=== PATIENT | male | born 1935 | race Two or more races ===

== ENCOUNTER 2019-07-25 09:48 | Inpatient (IN) | payer MEDICAID, MEDICARE ==
[2019-07-25] VITALS (17 sets, daily range): BP systolic 100–143; BP diastolic 61–86
[~2019-07-25] VITALS: Ht 172.7 cm; Wt 72.6 kg
[2019-07-25] MEDS ORDERED: SODIUM CHLORIDE 0.9% 1000ML BAG (SEPSIS BOLUS) IV ONE (10:15)
[2019-07-25 11:25] LABS: CLARITY URINE CLEAR (CLEAR); COLOR URINE YELLOW (YELLOW); KETONES URINE 3+ (NEGATIVE); LEUKOCYTE ESTERASE URINE NEGATIVE (NEGATIVE); NITRITE URINE NEGATIVE (NEGATIVE); OCCULT BLOOD URINE 1+ (NEGATIVE); PROTEIN URINE 3+ (NEGATIVE); SPECIFIC GRAVITY URINE 1.017 (1.005-1.030); UROBILINOGEN URINE 0.2 E.U./dL (0.2-1.0)
[2019-07-25 11:41] LABS: BASOPHILS % 0.4 % (0.0-2.0); EOSINOPHILS % 0.1 % (0.0-5.0); HEMATOCRIT. 47.7 % (42.0-52.0); HEMOGLOBIN. 15.4 g/dL (14.0-18.0); LYMPHOCYTES % 14.6 % (20.0-50.0); MEAN CORPUSCULAR HEMOGLOBIN 30.4 pg (28.0-32.0); MEAN CORPUSCULAR VOLUME 94.2 fL (80.0-94.0); MEAN PLATELET VOLUME 9.7 fl (7.4-10.4); MONOCYTES % 4.7 % (2.0-8.0); NEUTROPHILS % 80.2 % (40.0-76.0); PLATELET 189 x1000/uL (130-400); RED BLOOD CELL COUNT 5.06 mill/uL (4.7-6.1); RED CELL DISTRIBUTION WIDTH 14.9 % (11.6-14.6)
[2019-07-25 11:46] LABS: INR 1.1; PROTHROMBIN TIME 11.4 sec (9.6-11.0)
[2019-07-25 12:02] LABS: CHLORIDE 97 mEq/L (98-107)
[2019-07-25] MEDS ORDERED: PIPERACILLIN/TAZ 3.375G PREMIX 50 ML IV ONE (12:30)
[2019-07-25] MEDS ORDERED: AZITHROMYCIN 500 MG in DEXT 5% WATER 250 ML IV ONE (12:30)
[2019-07-25] MEDS ORDERED: HYDRALAZINE 20MG/ML VIAL IV ONE ×2 (12:45→13:45)
[2019-07-25 13:54] LABS: BG BASE EXCESS -3.3 mmol/L (-2.0-2.0); BG CARBOXYHEMOGLOBIN 1.5 % (0.5-1.5); BG DEOXYHEMOGLOBIN 16.1 % (0.0-5.0); BG FRACTION INSPIRED OXYGEN 21; BG HCO3 ACT 21.8 mmol/L (22.0-26.0); BG METHEMOGLOBIN 0.3 % (0.0-1.5); BG OXYGEN SATURATION 83.6 % (92.0-98.5); BG OXYHEMOGLOBIN 82.1 % (94.0-97.0); BG PCO2 39.8 mmHg (35.0-45.0); BG PH 7.357 (7.350-7.450); BG PO2 50.7 mmHg (75.0-100.0); BG SAMPLE SITE RIGHT BRACHIAL; BG TOTAL HEMOGLOBIN 14.7 g/dL (12.0-18.0); BG VENT MODE ROOM AIR
[2019-07-25] MEDS ORDERED: SUCCINYLCHOLINE CHLORIDE 200MG/10ML IV ONE (14:00)
[2019-07-25] MEDS ORDERED: ETOMIDATE 2MG/ML 10ML VIAL IV ONE (14:00)
[2019-07-25] MEDS ORDERED: MIDAZOLAM HCL 2 MG/2 ML VIAL IV ONE (14:00)
[2019-07-25] MEDS ORDERED: MIDAZOLAM HCL 50 MG in DEXTROSE 5% WATER 40 ML IV ONE (14:00)
[2019-07-25] MEDS ORDERED: MIDAZOLAM HCL 50 MG in DEXTROSE 5% WATER 40 ML IV SCH (14:30)
[2019-07-25 15:14] LABS: BG CARBOXYHEMOGLOBIN 0.7 % (0.5-1.5); BG DEOXYHEMOGLOBIN 0.5 % (0.0-5.0); BG FRACTION INSPIRED OXYGEN 100; BG HCO3 ACT 19.5 mmol/L (22.0-26.0); BG METHEMOGLOBIN 0.3 % (0.0-1.5); BG OXYGEN SATURATION 99.5 % (92.0-98.5); BG OXYHEMOGLOBIN 98.5 % (94.0-97.0); BG PH 7.364 (7.350-7.450); BG PO2 527.8 mmHg (75.0-100.0); BG SAMPLE SITE LEFT RADIAL; BG TIDAL VOLUME(mL) 600 mL; BG TOTAL HEMOGLOBIN 14.3 g/dL (12.0-18.0); BG VENT MODE VENT - A/C; BG VENT RATE 12 set
[2019-07-25] MEDS ORDERED: IPRATROPIUM/ALBUTEROL 0.5-3(2.5)MG/3ML NEB HHN PRN (15:30)
[2019-07-25] MEDS ORDERED: FENTANYL CITRATE/PF 500 MCG in SODIUM CHLORIDE 0.9% 40 ML IV PRN ×2 (15:30→16:00)
[2019-07-25 15:50] LABS: *BARBITURATES SCREEN URINE NEGATIVE (NEGATIVE); CANNABINOID URINE SCREEN NEGATIVE (NEGATIVE)
[2019-07-25 15:51] LABS: *AMPHETAMINES SCREEN URINE NEGATIVE (NEGATIVE); *BENZODIAZEPINES SCREEN URINE NEGATIVE (NEGATIVE); *COCAINE SCREEN URINE NEGATIVE (NEGATIVE); METHADONE URINE SCREEN NEGATIVE (NEGATIVE); OPIATES URINE SCREEN NEGATIVE (NEGATIVE); PHENCYCLIDINE URINE SCREEN NEGATIVE (NEGATIVE)
[2019-07-25] MEDS: ACETAMINOPHEN 325MG TABLET PO PRN ×2 (16:23→23:31)
[2019-07-25] MEDS: PROPOFOL 10MG/ML 100ML 100 ML IV PRN (16:24)
[2019-07-25] MEDS ORDERED: SODIUM CHLORIDE 10% FOR INH 15ML VIAL NEB INH SCH (18:00)
[2019-07-25] MEDS: IPRATROPIUM/ALBUTEROL 0.5-3(2.5)MG/3ML NEB HHN SCH (20:27)
[2019-07-25] MEDS: CEFTRIAXONE 1 G PREMIX 50 ML IV SCH (21:02)
[2019-07-25] MEDS ORDERED: DEXTROSE 50% WATER 50ML SYRINGE IV PRN (23:45)
[2019-07-26] VITALS (49 sets, daily range): BP systolic 72–167; BP diastolic 48–103
[2019-07-26] MEDS: IPRATROPIUM/ALBUTEROL 0.5-3(2.5)MG/3ML NEB HHN SCH ×6 (00:07→20:39)
[2019-07-26] MEDS: ACETAMINOPHEN 325MG TABLET PO PRN (05:11)
[2019-07-26 05:58] LABS: BASOPHILS % 0.2 % (0.0-2.0); HEMOGLOBIN. 12.8 g/dL (14.0-18.0); LYMPHOCYTES % 14.4 % (20.0-50.0); MEAN CORPUSCULAR HEMOGLOBIN 30.5 pg (28.0-32.0); MEAN CORPUSCULAR VOLUME 93.2 fL (80.0-94.0); MEAN PLATELET VOLUME 9.5 fl (7.4-10.4); MONOCYTES % 10.6 % (2.0-8.0); NEUTROPHILS % 74.8 % (40.0-76.0); PLATELET 173 x1000/uL (130-400); RED BLOOD CELL COUNT 4.18 mill/uL (4.7-6.1); RED CELL DISTRIBUTION WIDTH 14.7 % (11.6-14.6)
[2019-07-26 06:04] LABS: CHLORIDE 99 mEq/L (98-107)
[2019-07-26 06:14] LABS: PHOSPHORUS 3.8 mg/dL (2.5-4.9)
[2019-07-26] MEDS: BLOOD SUGAR DIAGNOSTIC STRIP TEST SCH ×4 (06:28→17:10)
[2019-07-26 08:19] LABS: BG BASE EXCESS -0.7 mmol/L (-2.0-2.0); BG CARBOXYHEMOGLOBIN 0.6 % (0.5-1.5); BG DEOXYHEMOGLOBIN 1.5 % (0.0-5.0); BG FRACTION INSPIRED OXYGEN 40; BG HCO3 ACT 21.3 mmol/L (22.0-26.0); BG METHEMOGLOBIN 0.1 % (0.0-1.5); BG OXYGEN SATURATION 98.5 % (92.0-98.5); BG OXYHEMOGLOBIN 97.8 % (94.0-97.0); BG PCO2 27.8 mmHg (35.0-45.0); BG PH 7.502 (7.350-7.450); BG PO2 149.2 mmHg (75.0-100.0); BG SAMPLE SITE RIGHT RADIAL; BG TIDAL VOLUME(mL) 550 mL; BG VENT MODE VENT - A/C; BG VENT RATE 12 set
[2019-07-26] MEDS: INSULIN LISPRO 100 UNITS/ML SUBCUT SCH ×4 (08:42→22:33)
[2019-07-26] MEDS ORDERED: POTASSIUM CHLORIDE 20MEQ/PACKET PO NR (12:00)
[2019-07-26] MEDS ORDERED: MAGNESIUM 4 G PREMIX 100 ML IV NR (13:00)
[2019-07-26] MEDS: AZITHROMYCIN 500 MG in DEXT 5% WATER 250 ML IV SCH (13:10)
[2019-07-26] MEDS: PROPOFOL 10MG/ML 100ML 100 ML IV PRN (14:12)
[2019-07-26] MEDS: CEFTRIAXONE 1 G PREMIX 50 ML IV SCH (17:00)
[2019-07-26] MEDS ORDERED: ENOXAPARIN 40MG/0.4ML SYR SUBCUT SCH (21:00)
[2019-07-26 21:34] LABS: BG CARBOXYHEMOGLOBIN 0.8 % (0.5-1.5); BG DEOXYHEMOGLOBIN 3.3 % (0.0-5.0); BG FRACTION INSPIRED OXYGEN 30; BG HCO3 ACT 20.9 mmol/L (22.0-26.0); BG OXYGEN SATURATION 96.7 % (92.0-98.5); BG OXYHEMOGLOBIN 95.9 % (94.0-97.0); BG PH 7.506 (7.350-7.450); BG PO2 88.6 mmHg (75.0-100.0); BG PRESSURE SUPPORT 15; BG SAMPLE SITE RIGHT RADIAL; BG TIDAL VOLUME(mL) 550 mL; BG TOTAL HEMOGLOBIN 12.5 g/dL (12.0-18.0); BG VENT MODE VENT - SIMV; BG VENT RATE 10 set
[2019-07-26] MEDS: PANTOPRAZOLE SODIUM 40 MG/VIAL IV SCH (22:31)
[2019-07-26] MEDS: ENOXAPARIN 40MG/0.4ML SYR SUBCUT SCH (22:32)
[2019-07-26] MEDS: ASPIRIN 81MG TABLET PO SCH (22:32)
[2019-07-26] MEDS: INSULIN GLARGINE UD 100 UNITS/ML SYR SUBCUT SCH (22:33)
[2019-07-27] VITALS (43 sets, daily range): BP systolic 93–170; BP diastolic 56–88
[2019-07-27] MEDS: IPRATROPIUM/ALBUTEROL 0.5-3(2.5)MG/3ML NEB HHN SCH ×6 (00:22→20:40)
[2019-07-27 04:50] LABS: PHOSPHORUS 2.8 mg/dL (2.5-4.9)
[2019-07-27 05:25] LABS: BASOPHILS % 0.2 % (0.0-2.0); HEMATOCRIT. 37.5 % (42.0-52.0); HEMOGLOBIN. 12.4 g/dL (14.0-18.0); LYMPHOCYTES % 16.3 % (20.0-50.0); MEAN CORPUSCULAR HEMOGLOBIN 30.7 pg (28.0-32.0); MEAN CORPUSCULAR VOLUME 92.9 fL (80.0-94.0); MEAN PLATELET VOLUME 9.6 fl (7.4-10.4); NEUTROPHILS % 73.5 % (40.0-76.0); PLATELET 153 x1000/uL (130-400); RED BLOOD CELL COUNT 4.04 mill/uL (4.7-6.1); RED CELL DISTRIBUTION WIDTH 14.7 % (11.6-14.6)
[2019-07-27] MEDS: BLOOD SUGAR DIAGNOSTIC STRIP TEST SCH ×5 (06:14→23:58)
[2019-07-27] MEDS: INSULIN LISPRO 100 UNITS/ML SUBCUT SCH ×4 (06:15→20:58)
[2019-07-27] MEDS: ASPIRIN 81MG TABLET PO SCH (08:50)
[2019-07-27] MEDS: PANTOPRAZOLE SODIUM 40 MG/VIAL IV SCH (08:50)
[2019-07-27] MEDS ORDERED: LEVETIRACETAM 500 MG in SODIUM CHLORIDE 0.9% 100 ML IV SCH (09:00)
[2019-07-27 09:08] LABS: BG BASE EXCESS -3.8 mmol/L (-2.0-2.0); BG CARBOXYHEMOGLOBIN 0.5 % (0.5-1.5); BG DEOXYHEMOGLOBIN 1.7 % (0.0-5.0); BG FRACTION INSPIRED OXYGEN 30; BG HCO3 ACT 19.9 mmol/L (22.0-26.0); BG METHEMOGLOBIN 0.3 % (0.0-1.5); BG OXYGEN SATURATION 98.3 % (92.0-98.5); BG OXYHEMOGLOBIN 97.5 % (94.0-97.0); BG PCO2 31.9 mmHg (35.0-45.0); BG PH 7.412 (7.350-7.450); BG PO2 138.7 mmHg (75.0-100.0); BG PRESSURE SUPPORT 15; BG SAMPLE SITE RIGHT RADIAL; BG TIDAL VOLUME(mL) 550 mL; BG TOTAL HEMOGLOBIN 12.9 g/dL (12.0-18.0); BG VENT MODE VENT - SIMV; BG VENT RATE 10 set
[2019-07-27] MEDS: LEVETIRACETAM 500MG PREMIX 100 ML IV SCH ×2 (09:13→20:39)
[2019-07-27] MEDS: INSULIN GLARGINE UD 100 UNITS/ML SYR SUBCUT SCH ×2 (09:16→22:11)
[2019-07-27] MEDS: LORAZEPAM 2MG/ML CPJ IV PRN (10:24)
[2019-07-27] MEDS: AZITHROMYCIN 500 MG in DEXT 5% WATER 250 ML IV SCH (12:51)
[2019-07-27] MEDS: CEFTRIAXONE 1 G PREMIX 50 ML IV SCH (17:18)
[2019-07-27] MEDS: ENOXAPARIN 40MG/0.4ML SYR SUBCUT SCH (20:39)
[2019-07-28] VITALS (25 sets, daily range): BP systolic 118–168; BP diastolic 59–94
[2019-07-28] MEDS: IPRATROPIUM/ALBUTEROL 0.5-3(2.5)MG/3ML NEB HHN SCH ×6 (00:37→20:58)
[2019-07-28] MEDS: ACETAMINOPHEN 325MG TABLET PO PRN (03:44)
[2019-07-28] MEDS: BLOOD SUGAR DIAGNOSTIC STRIP TEST SCH ×3 (05:54→17:56)
[2019-07-28 06:01] LABS: BASOPHILS % 0.5 % (0.0-2.0); EOSINOPHILS % 0.5 % (0.0-5.0); HEMATOCRIT. 36.4 % (42.0-52.0); HEMOGLOBIN. 11.9 g/dL (14.0-18.0); LYMPHOCYTES % 15.5 % (20.0-50.0); MEAN CORPUSCULAR HEMOGLOBIN 30.7 pg (28.0-32.0); MONOCYTES % 10.4 % (2.0-8.0); NEUTROPHILS % 73.1 % (40.0-76.0); PLATELET 145 x1000/uL (130-400); RED BLOOD CELL COUNT 3.88 mill/uL (4.7-6.1); RED CELL DISTRIBUTION WIDTH 14.6 % (11.6-14.6)
[2019-07-28 06:06] LABS: CHLORIDE 103 mEq/L (98-107)
[2019-07-28] MEDS: INSULIN LISPRO 100 UNITS/ML SUBCUT SCH ×4 (06:31→21:00)
[2019-07-28] MEDS: PANTOPRAZOLE SODIUM 40 MG/VIAL IV SCH (09:12)
[2019-07-28] MEDS: LEVETIRACETAM 500MG PREMIX 100 ML IV SCH ×2 (09:12→20:38)
[2019-07-28] MEDS: ASPIRIN 81MG TABLET PO SCH (09:12)
[2019-07-28] MEDS: INSULIN GLARGINE UD 100 UNITS/ML SYR SUBCUT SCH ×2 (10:10→23:16)
[2019-07-28 10:14] LABS: BG BASE EXCESS 0.9 mmol/L (-2.0-2.0); BG FRACTION INSPIRED OXYGEN 30; BG HCO3 ACT 23.1 mmol/L (22.0-26.0); BG METHEMOGLOBIN 0.1 % (0.0-1.5); BG OXYHEMOGLOBIN 96.9 % (94.0-97.0); BG PCO2 29.7 mmHg (35.0-45.0); BG PH 7.509 (7.350-7.450); BG PO2 114.8 mmHg (75.0-100.0); BG PRESSURE SUPPORT 15; BG SAMPLE SITE RIGHT RADIAL; BG TIDAL VOLUME(mL) 550 mL; BG TOTAL HEMOGLOBIN 12.5 g/dL (12.0-18.0); BG VENT MODE VENT - SIMV; BG VENT RATE 8 set
[2019-07-28] MEDS: AZITHROMYCIN 500 MG in DEXT 5% WATER 250 ML IV SCH (14:11)
[2019-07-28] MEDS: CEFTRIAXONE 1 G PREMIX 50 ML IV SCH (17:59)
[2019-07-28] MEDS ORDERED: POTASSIUM CHLORIDE 20MEQ/PACKET PO NR (20:15)
[2019-07-28] MEDS: ENOXAPARIN 40MG/0.4ML SYR SUBCUT SCH (20:38)
[2019-07-29] VITALS (28 sets, daily range): BP systolic 107–187; BP diastolic 59–97
[2019-07-29] MEDS: IPRATROPIUM/ALBUTEROL 0.5-3(2.5)MG/3ML NEB HHN SCH ×6 (00:40→19:59)
[2019-07-29] MEDS: LORAZEPAM 2MG/ML CPJ IV PRN (05:01)
[2019-07-29 06:16] LABS: BASOPHILS % 0.4 % (0.0-2.0); HEMATOCRIT. 38.7 % (42.0-52.0); HEMOGLOBIN. 12.8 g/dL (14.0-18.0); LYMPHOCYTES % 15.3 % (20.0-50.0); MEAN PLATELET VOLUME 9.4 fl (7.4-10.4); MONOCYTES % 10.3 % (2.0-8.0); PLATELET 170 x1000/uL (130-400); RED BLOOD CELL COUNT 4.12 mill/uL (4.7-6.1); RED CELL DISTRIBUTION WIDTH 14.8 % (11.6-14.6)
[2019-07-29 06:19] LABS: CHLORIDE 105 mEq/L (98-107)
[2019-07-29] MEDS: BLOOD SUGAR DIAGNOSTIC STRIP TEST SCH ×5 (06:25→23:51)
[2019-07-29] MEDS: INSULIN LISPRO 100 UNITS/ML SUBCUT SCH ×4 (06:29→23:50)
[2019-07-29 07:21] LABS: BG BASE EXCESS 1.9 mmol/L (-2.0-2.0); BG CARBOXYHEMOGLOBIN 0.6 % (0.5-1.5); BG DEOXYHEMOGLOBIN 1.3 % (0.0-5.0); BG FRACTION INSPIRED OXYGEN 30; BG HCO3 ACT 25.9 mmol/L (22.0-26.0); BG METHEMOGLOBIN 0.1 % (0.0-1.5); BG OXYGEN SATURATION 98.7 % (92.0-98.5); BG PCO2 38.7 mmHg (35.0-45.0); BG PH 7.444 (7.350-7.450); BG PO2 151.4 mmHg (75.0-100.0); BG SAMPLE SITE RIGHT BRACHIAL; BG TIDAL VOLUME(mL) 500 mL; BG TOTAL HEMOGLOBIN 12.8 g/dL (12.0-18.0); BG VENT MODE VENT - A/C; BG VENT RATE 10 set
[2019-07-29] MEDS: LEVETIRACETAM 500MG PREMIX 100 ML IV SCH (09:00)
[2019-07-29] MEDS: ASPIRIN 81MG TABLET PO SCH (09:00)
[2019-07-29] MEDS: PANTOPRAZOLE SODIUM 40 MG/VIAL IV SCH (09:00)
[2019-07-29] MEDS ORDERED: PROPOFOL 10MG/ML 100ML 100 ML IV PRN (09:30)
[2019-07-29] MEDS: INSULIN GLARGINE UD 100 UNITS/ML SYR SUBCUT SCH ×2 (11:01→21:37)
[2019-07-29] MEDS: AZITHROMYCIN 500 MG in DEXT 5% WATER 250 ML IV SCH (14:00)
[2019-07-29] MEDS: CEFTRIAXONE 1 G PREMIX 50 ML IV SCH (19:31)
[2019-07-29] MEDS: ENOXAPARIN 40MG/0.4ML SYR SUBCUT SCH (21:31)
[2019-07-29] MEDS: LEVETIRACETAM 1,000 MG in SODIUM CHLORIDE 0.9% 100 ML IV SCH (21:31)
[2019-07-30] VITALS (37 sets, daily range): BP systolic 117–179; BP diastolic 60–101
[2019-07-30] MEDS: IPRATROPIUM/ALBUTEROL 0.5-3(2.5)MG/3ML NEB HHN SCH ×6 (00:05→20:58)
[2019-07-30] MEDS: BLOOD SUGAR DIAGNOSTIC STRIP TEST SCH ×4 (05:51→23:47)
[2019-07-30] MEDS: INSULIN LISPRO 100 UNITS/ML SUBCUT SCH ×4 (05:51→23:46)
[2019-07-30 06:37] LABS: BASOPHILS % 0.3 % (0.0-2.0); EOSINOPHILS % 1.4 % (0.0-5.0); HEMATOCRIT. 35.7 % (42.0-52.0); HEMOGLOBIN. 11.5 g/dL (14.0-18.0); MEAN CORPUSCULAR HEMOGLOBIN 30.4 pg (28.0-32.0); MEAN CORPUSCULAR VOLUME 94.3 fL (80.0-94.0); MEAN PLATELET VOLUME 9.2 fl (7.4-10.4); NEUTROPHILS % 78.3 % (40.0-76.0); PLATELET 159 x1000/uL (130-400); RED BLOOD CELL COUNT 3.79 mill/uL (4.7-6.1); RED CELL DISTRIBUTION WIDTH 15.2 % (11.6-14.6)
[2019-07-30 06:39] LABS: CHLORIDE 107 mEq/L (98-107)
[2019-07-30] MEDS: ASPIRIN 81MG TABLET PO SCH (07:59)
[2019-07-30] MEDS: LEVETIRACETAM 1,000 MG in SODIUM CHLORIDE 0.9% 100 ML IV SCH ×2 (07:59→21:39)
[2019-07-30] MEDS: PANTOPRAZOLE SODIUM 40 MG/VIAL IV SCH (07:59)
[2019-07-30] MEDS: INSULIN GLARGINE UD 100 UNITS/ML SYR SUBCUT SCH ×2 (09:30→21:41)
[2019-07-30] MEDS ORDERED: PROPOFOL 10MG/ML 100ML 100 ML IV PRN (10:15)
[2019-07-30] MEDS ORDERED: MORPHINE SULFATE 2 MG/ML CPJ (NOT FOR IM USE) IV PRN (12:15)
[2019-07-30] MEDS: ACETAMINOPHEN 325MG TABLET PO PRN (12:22)
[2019-07-30 15:22] LABS: BG BASE EXCESS 1.8 mmol/L (-2.0-2.0); BG CARBOXYHEMOGLOBIN 0.7 % (0.5-1.5); BG DEOXYHEMOGLOBIN 2.5 % (0.0-5.0); BG FRACTION INSPIRED OXYGEN 40; BG HCO3 ACT 25.5 mmol/L (22.0-26.0); BG METHEMOGLOBIN 0.3 % (0.0-1.5); BG OXYGEN SATURATION 97.5 % (92.0-98.5); BG OXYHEMOGLOBIN 96.5 % (94.0-97.0); BG PCO2 36.8 mmHg (35.0-45.0); BG PH 7.459 (7.350-7.450); BG PO2 101.7 mmHg (75.0-100.0); BG PRESSURE SUPPORT 8; BG SAMPLE SITE RIGHT RADIAL; BG TOTAL HEMOGLOBIN 12.4 g/dL (12.0-18.0); BG VENT MODE VENT - CPAP
[2019-07-30] MEDS: AZITHROMYCIN 500 MG in DEXT 5% WATER 250 ML IV SCH (15:47)
[2019-07-30] MEDS: LORAZEPAM 2MG/ML CPJ IV PRN (18:11)
[2019-07-30] MEDS: CEFTRIAXONE 1 G PREMIX 50 ML IV SCH (19:37)
[2019-07-30] MEDS: ENOXAPARIN 40MG/0.4ML SYR SUBCUT SCH (21:41)
[2019-07-31] VITALS (28 sets, daily range): BP systolic 111–199; BP diastolic 40–124
[2019-07-31] MEDS: IPRATROPIUM/ALBUTEROL 0.5-3(2.5)MG/3ML NEB HHN SCH ×6 (01:02→20:20)
[2019-07-31] MEDS: BLOOD SUGAR DIAGNOSTIC STRIP TEST SCH ×4 (05:26→21:36)
[2019-07-31] MEDS: INSULIN LISPRO 100 UNITS/ML SUBCUT SCH ×3 (05:26→18:00)
[2019-07-31 05:50] LABS: BASOPHILS % 0.4 % (0.0-2.0); EOSINOPHILS % 1.5 % (0.0-5.0); HEMATOCRIT. 35.9 % (42.0-52.0); HEMOGLOBIN. 11.5 g/dL (14.0-18.0); LYMPHOCYTES % 11.1 % (20.0-50.0); MEAN CORPUSCULAR HEMOGLOBIN 30.6 pg (28.0-32.0); MEAN CORPUSCULAR VOLUME 95.1 fL (80.0-94.0); MEAN PLATELET VOLUME 9.2 fl (7.4-10.4); MONOCYTES % 10.4 % (2.0-8.0); NEUTROPHILS % 76.6 % (40.0-76.0); PLATELET 181 x1000/uL (130-400); RED BLOOD CELL COUNT 3.77 mill/uL (4.7-6.1); RED CELL DISTRIBUTION WIDTH 14.7 % (11.6-14.6)
[2019-07-31 07:56] LABS: CHLORIDE 108 mEq/L (98-107)
[2019-07-31] MEDS: PANTOPRAZOLE SODIUM 40 MG/VIAL IV SCH (08:51)
[2019-07-31] MEDS: LEVETIRACETAM 1,000 MG in SODIUM CHLORIDE 0.9% 100 ML IV SCH ×2 (09:02→21:22)
[2019-07-31] MEDS: ASPIRIN 81MG TABLET PO SCH (10:33)
[2019-07-31] MEDS: INSULIN GLARGINE UD 100 UNITS/ML SYR SUBCUT SCH ×2 (10:36→21:45)
[2019-07-31] MEDS: AZITHROMYCIN 500 MG in DEXT 5% WATER 250 ML IV SCH (13:56)
[2019-07-31] MEDS: CEFTRIAXONE 1 G PREMIX 50 ML IV SCH (18:26)
[2019-07-31] MEDS: ENOXAPARIN 40MG/0.4ML SYR SUBCUT SCH (21:22)
[2019-07-31] MEDS ORDERED: HYDRALAZINE 20MG/ML VIAL IV ONE (21:30)
[2019-07-31] MEDS ORDERED: INSULIN LISPRO 100 UNITS/ML SUBCUT SCH (21:30)
[2019-08-01] VITALS (12 sets, daily range): BP systolic 114–159; BP diastolic 67–98
[2019-08-01] MEDS: IPRATROPIUM/ALBUTEROL 0.5-3(2.5)MG/3ML NEB HHN SCH ×4 (00:15→21:10)
[2019-08-01] MEDS: BLOOD SUGAR DIAGNOSTIC STRIP TEST SCH ×2 (07:50→21:05)
[2019-08-01] MEDS: INSULIN LISPRO 100 UNITS/ML SUBCUT SCH ×2 (07:50→21:18)
[2019-08-01] MEDS: ASPIRIN 81MG TABLET PO SCH (09:39)
[2019-08-01] MEDS: INSULIN GLARGINE UD 100 UNITS/ML SYR SUBCUT SCH ×2 (09:39→21:23)
[2019-08-01] MEDS: LEVETIRACETAM 1,000 MG in SODIUM CHLORIDE 0.9% 100 ML IV SCH (09:39)
[2019-08-01] MEDS: PANTOPRAZOLE SODIUM 40 MG/VIAL IV SCH (09:39)
[2019-08-01] MEDS: AZITHROMYCIN 500 MG in DEXT 5% WATER 250 ML IV SCH (15:35)
[2019-08-01] MEDS: CEFTRIAXONE 1 G PREMIX 50 ML IV SCH (17:05)
[2019-08-01] MEDS: ENOXAPARIN 40MG/0.4ML SYR SUBCUT SCH (21:18)
[2019-08-02] VITALS: BP 137/106
[2019-08-02] MEDS: LEVETIRACETAM 1,000 MG in SODIUM CHLORIDE 0.9% 100 ML IV SCH ×2 (00:07→10:14)
[2019-08-02] MEDS: IPRATROPIUM/ALBUTEROL 0.5-3(2.5)MG/3ML NEB HHN SCH ×8 (00:52→21:42)
[2019-08-02 04:00] VITALS: BP 142/76
[2019-08-02] MEDS: INSULIN LISPRO 100 UNITS/ML SUBCUT SCH ×2 (06:45→21:59)
[2019-08-02] MEDS: BLOOD SUGAR DIAGNOSTIC STRIP TEST SCH ×2 (07:19→21:55)
[2019-08-02 08:00] VITALS: BP 127/82
[2019-08-02] MEDS: ASPIRIN 81MG TABLET PO SCH (10:14)
[2019-08-02] MEDS: PANTOPRAZOLE SODIUM 40 MG/VIAL IV SCH (10:14)
[2019-08-02] MEDS: INSULIN GLARGINE UD 100 UNITS/ML SYR SUBCUT SCH ×2 (10:14→22:00)
[2019-08-02 12:00] VITALS: BP 173/85
[2019-08-02] MEDS: ACETAMINOPHEN 325MG TABLET PO PRN (12:41)
[2019-08-02] MEDS ORDERED: HYDRALAZINE 20MG/ML VIAL IV PRN (13:15)
[2019-08-02] MEDS: NAPROXEN 250MG TABLET PO SCH (17:15)
[2019-08-02] MEDS: HYDROCODONE/ACETAMINOPHEN 5/325MG TABLET PO PRN (17:46)
[2019-08-02 20:00] VITALS: BP 132/69
[2019-08-02] MEDS: ATORVASTATIN CALCIUM 10MG TABLET PO SCH (21:00)
[2019-08-02] MEDS: FAMOTIDINE 20MG TABLET PO SCH (21:00)
[2019-08-02] MEDS: LEVETIRACETAM 500MG TABLET PO SCH (21:00)
[2019-08-02] MEDS: FLUTICASONE PROPIONATE 50MCG/SPRAY BOTTLE BOTHNSTRLS SCH (21:00)
[2019-08-02] MEDS: LORAZEPAM 2MG/ML CPJ IV PRN (21:44)
[2019-08-02] MEDS: ENOXAPARIN 40MG/0.4ML SYR SUBCUT SCH (21:58)
[2019-08-03] VITALS: BP 158/68
[2019-08-03 04:00] VITALS: BP 141/88
[2019-08-03] MEDS: BLOOD SUGAR DIAGNOSTIC STRIP TEST SCH ×2 (06:18→21:05)
[2019-08-03] MEDS: INSULIN LISPRO 100 UNITS/ML SUBCUT SCH ×2 (06:19→21:05)
[2019-08-03] MEDS: NAPROXEN 250MG TABLET PO SCH ×2 (07:15→17:15)
[2019-08-03 08:00] VITALS: BP 142/70
[2019-08-03] MEDS: ASPIRIN 81MG TABLET PO SCH (08:34)
[2019-08-03] MEDS: LEVETIRACETAM 500MG TABLET PO SCH ×2 (08:34→21:05)
[2019-08-03] MEDS: FLUTICASONE PROPIONATE 50MCG/SPRAY BOTTLE BOTHNSTRLS SCH ×2 (08:34→21:00)
[2019-08-03] MEDS: IPRATROPIUM/ALBUTEROL 0.5-3(2.5)MG/3ML NEB HHN SCH ×4 (09:11→20:21)
[2019-08-03 12:00] VITALS: BP 160/80
[2019-08-03 16:00] VITALS: BP 129/71
[2019-08-03 20:00] VITALS: BP 107/84
[2019-08-03] MEDS: FAMOTIDINE 20MG TABLET PO SCH (21:04)
[2019-08-03] MEDS: ATORVASTATIN CALCIUM 10MG TABLET PO SCH (21:05)
[2019-08-03] MEDS: ENOXAPARIN 40MG/0.4ML SYR SUBCUT SCH (21:06)
[2019-08-03] MEDS: INSULIN GLARGINE UD 100 UNITS/ML SYR SUBCUT SCH (21:21)
[2019-08-04] VITALS: BP 176/82
[2019-08-04] MEDS: IPRATROPIUM/ALBUTEROL 0.5-3(2.5)MG/3ML NEB HHN SCH ×6 (00:20→20:05)
[2019-08-04 04:00] VITALS: BP 143/72
[2019-08-04] MEDS: INSULIN LISPRO 100 UNITS/ML SUBCUT SCH ×2 (06:45→21:00)
[2019-08-04] MEDS: BLOOD SUGAR DIAGNOSTIC STRIP TEST SCH ×2 (06:47→21:25)
[2019-08-04] MEDS: FLUTICASONE PROPIONATE 50MCG/SPRAY BOTTLE BOTHNSTRLS SCH ×3 (09:00→21:09)
[2019-08-04] MEDS: LEVETIRACETAM 500MG TABLET PO SCH ×2 (10:11→21:11)
[2019-08-04] MEDS: NAPROXEN 250MG TABLET PO SCH ×2 (10:12→18:46)
[2019-08-04] MEDS: ASPIRIN 81MG TABLET PO SCH (10:12)
[2019-08-04 12:00] VITALS: BP 158/78
[2019-08-04] MEDS: HYDROCODONE/ACETAMINOPHEN 5/325MG TABLET PO PRN (14:06)
[2019-08-04 20:00] VITALS: BP 166/73
[2019-08-04] MEDS ORDERED: DIPHENHYDRAMINE 25MG CAPSULE PO PRN (21:00)
[2019-08-04] MEDS: ENOXAPARIN 40MG/0.4ML SYR SUBCUT SCH (21:10)
[2019-08-04] MEDS: FAMOTIDINE 20MG TABLET PO SCH (21:11)
[2019-08-04] MEDS: ATORVASTATIN CALCIUM 10MG TABLET PO SCH (21:11)
[2019-08-04] MEDS: CLONIDINE 0.1MG TABLET PO PRN (21:11)
[2019-08-04] MEDS: INSULIN GLARGINE UD 100 UNITS/ML SYR SUBCUT SCH (22:00)
[2019-08-04] MEDS: HYDROCORTISONE 1% CREAM 30GM TOP SCH (22:16)
[2019-08-05] VITALS: BP 155/62
[2019-08-05] MEDS: IPRATROPIUM/ALBUTEROL 0.5-3(2.5)MG/3ML NEB HHN SCH ×6 (00:35→20:00)
[2019-08-05 04:00] VITALS: BP 136/78
[2019-08-05] MEDS: INSULIN LISPRO 100 UNITS/ML SUBCUT SCH ×2 (06:30→21:00)
[2019-08-05] MEDS: BLOOD SUGAR DIAGNOSTIC STRIP TEST SCH ×2 (06:30→21:00)
[2019-08-05] MEDS: NAPROXEN 250MG TABLET PO SCH ×4 (07:15→17:52)
[2019-08-05 08:00] VITALS: BP 131/61
[2019-08-05] MEDS: ASPIRIN 81MG TABLET PO SCH ×2 (09:00→09:18)
[2019-08-05] MEDS: FLUTICASONE PROPIONATE 50MCG/SPRAY BOTTLE BOTHNSTRLS SCH ×2 (09:00→09:18)
[2019-08-05] MEDS: HYDROCORTISONE 1% CREAM 30GM TOP SCH ×2 (09:18→21:12)
[2019-08-05] MEDS: LEVETIRACETAM 500MG TABLET PO SCH (09:18)
[2019-08-05 12:00] VITALS: BP 131/61
[2019-08-05] MEDS: QUETIAPINE FUMARATE 25MG TABLET PO SCH (17:52)
[2019-08-05 20:00] VITALS: BP 139/91
[2019-08-05] MEDS: ATORVASTATIN CALCIUM 10MG TABLET PO SCH (21:00)
[2019-08-05] MEDS: ENOXAPARIN 40MG/0.4ML SYR SUBCUT SCH (21:00)
[2019-08-05] MEDS: LEVETIRACETAM 250MG TABLET PO SCH (21:00)
[2019-08-05] MEDS: FAMOTIDINE 20MG TABLET PO SCH (21:00)
[2019-08-05] MEDS: INSULIN GLARGINE UD 100 UNITS/ML SYR SUBCUT SCH (21:17)
[2019-08-06] VITALS: BP 133/69
[2019-08-06 05:00] VITALS: BP 154/85
[2019-08-06] MEDS: IPRATROPIUM/ALBUTEROL 0.5-3(2.5)MG/3ML NEB HHN SCH ×5 (05:00→16:00)
[2019-08-06] MEDS: INSULIN LISPRO 100 UNITS/ML SUBCUT SCH ×2 (06:45→21:00)
[2019-08-06] MEDS: NAPROXEN 250MG TABLET PO SCH ×2 (06:49→16:15)
[2019-08-06] MEDS: BLOOD SUGAR DIAGNOSTIC STRIP TEST SCH ×2 (06:49→21:44)
[2019-08-06 08:00] VITALS: BP 173/82
[2019-08-06] MEDS: HYDROCORTISONE 1% CREAM 30GM TOP SCH ×2 (09:36→21:45)
[2019-08-06] MEDS: LEVETIRACETAM 250MG TABLET PO SCH ×2 (09:37→21:43)
[2019-08-06] MEDS: QUETIAPINE FUMARATE 25MG TABLET PO SCH (09:37)
[2019-08-06] MEDS: ASPIRIN 81MG TABLET PO SCH (09:37)
[2019-08-06 12:00] VITALS: BP 159/68
[2019-08-06] MEDS: ACETAMINOPHEN 325MG TABLET PO PRN (13:28)
[2019-08-06 16:00] VITALS: BP 179/63
[2019-08-06] MEDS: CLONIDINE 0.1MG TABLET PO PRN (16:13)
[2019-08-06 20:00] VITALS: BP 146/80
[2019-08-06] MEDS: ENOXAPARIN 40MG/0.4ML SYR SUBCUT SCH (21:00)
[2019-08-06] MEDS: FAMOTIDINE 20MG TABLET PO SCH (21:43)
[2019-08-06] MEDS: ATORVASTATIN CALCIUM 10MG TABLET PO SCH (21:43)
[2019-08-06] MEDS: INSULIN GLARGINE UD 100 UNITS/ML SYR SUBCUT SCH (21:44)
[2019-08-07] VITALS: BP 178/85
[2019-08-07] MEDS: CLONIDINE 0.1MG TABLET PO PRN (00:13)
[2019-08-07 04:00] VITALS: BP 157/88
[2019-08-07] MEDS: BLOOD SUGAR DIAGNOSTIC STRIP TEST SCH ×2 (06:56→20:39)
[2019-08-07] MEDS: INSULIN LISPRO 100 UNITS/ML SUBCUT SCH ×2 (06:58→20:38)
[2019-08-07 08:00] VITALS: BP 163/81
[2019-08-07] MEDS: NAPROXEN 250MG TABLET PO SCH ×2 (08:17→19:08)
[2019-08-07] MEDS: HYDROCORTISONE 1% CREAM 30GM TOP SCH ×2 (08:17→20:21)
[2019-08-07] MEDS: LEVETIRACETAM 250MG TABLET PO SCH ×2 (08:17→20:20)
[2019-08-07] MEDS: QUETIAPINE FUMARATE 25MG TABLET PO SCH (08:17)
[2019-08-07] MEDS: ASPIRIN 81MG TABLET PO SCH (08:20)
[2019-08-07] MEDS: IPRATROPIUM/ALBUTEROL 0.5-3(2.5)MG/3ML NEB HHN SCH ×3 (09:15→20:35)
[2019-08-07 16:00] VITALS: BP 130/65
[2019-08-07 20:00] VITALS: BP 127/72
[2019-08-07] MEDS: ENOXAPARIN 40MG/0.4ML SYR SUBCUT SCH (20:20)
[2019-08-07] MEDS: FAMOTIDINE 20MG TABLET PO SCH (20:20)
[2019-08-07] MEDS: ATORVASTATIN CALCIUM 10MG TABLET PO SCH (20:20)
[2019-08-07] MEDS: INSULIN GLARGINE UD 100 UNITS/ML SYR SUBCUT SCH (20:42)
[2019-08-08] VITALS: BP 172/66
[2019-08-08] MEDS: IPRATROPIUM/ALBUTEROL 0.5-3(2.5)MG/3ML NEB HHN SCH ×6 (00:16→20:45)
[2019-08-08 04:00] VITALS: BP 124/59
[2019-08-08] MEDS: BLOOD SUGAR DIAGNOSTIC STRIP TEST SCH ×2 (06:20→21:00)
[2019-08-08] MEDS: INSULIN LISPRO 100 UNITS/ML SUBCUT SCH ×2 (06:20→21:00)
[2019-08-08 08:00] VITALS: BP_SYST 128; BP_SYST 167; BP_DIAS 85; BP_DIAS 89
[2019-08-08] MEDS: QUETIAPINE FUMARATE 25MG TABLET PO SCH ×2 (08:19→17:01)
[2019-08-08] MEDS: LEVETIRACETAM 250MG TABLET PO SCH ×2 (08:19→21:05)
[2019-08-08] MEDS: ASPIRIN 81MG TABLET PO SCH (08:19)
[2019-08-08] MEDS: NAPROXEN 250MG TABLET PO SCH ×2 (08:20→17:01)
[2019-08-08] MEDS: HYDROCORTISONE 1% CREAM 30GM TOP SCH ×2 (08:26→21:05)
[2019-08-08 12:00] VITALS: BP 169/88
[2019-08-08 16:00] VITALS: BP_SYST 169; BP_DIAS 81; BP_DIAS 91
[2019-08-08] MEDS: METFORMIN HCL 850MG TABLET PO SCH (17:01)
[2019-08-08 20:00] VITALS: BP 143/55
[2019-08-08] MEDS: ENOXAPARIN 40MG/0.4ML SYR SUBCUT SCH ×2 (21:00→21:06)
[2019-08-08] MEDS: INSULIN GLARGINE UD 100 UNITS/ML SYR SUBCUT SCH (21:04)
[2019-08-08] MEDS: ATORVASTATIN CALCIUM 10MG TABLET PO SCH (21:05)
[2019-08-08] MEDS: FAMOTIDINE 20MG TABLET PO SCH (21:05)
[2019-08-09 04:00] VITALS: BP 126/68
[2019-08-09] MEDS: INSULIN LISPRO 100 UNITS/ML SUBCUT SCH ×2 (06:35→21:00)
[2019-08-09] MEDS: BLOOD SUGAR DIAGNOSTIC STRIP TEST SCH ×2 (06:35→21:00)
[2019-08-09] MEDS: NAPROXEN 250MG TABLET PO SCH ×2 (07:06→16:49)
[2019-08-09] MEDS: METFORMIN HCL 850MG TABLET PO SCH ×2 (07:06→16:49)
[2019-08-09] MEDS: QUETIAPINE FUMARATE 25MG TABLET PO SCH ×2 (08:16→16:49)
[2019-08-09] MEDS: LEVETIRACETAM 250MG TABLET PO SCH ×2 (08:16→21:00)
[2019-08-09] MEDS: ASPIRIN 81MG TABLET PO SCH (08:16)
[2019-08-09] MEDS: HYDROCORTISONE 1% CREAM 30GM TOP SCH ×2 (08:16→21:00)
[2019-08-09 08:57] LABS: BASOPHILS % 1.3 % (0.0-2.0); EOSINOPHILS % 3.9 % (0.0-5.0); HEMATOCRIT. 38.5 % (42.0-52.0); HEMOGLOBIN. 12.2 g/dL (14.0-18.0); LYMPHOCYTES % 24.4 % (20.0-50.0); MEAN CORPUSCULAR HEMOGLOBIN 29.9 pg (28.0-32.0); MEAN CORPUSCULAR VOLUME 94.2 fL (80.0-94.0); MEAN PLATELET VOLUME 8.4 fl (7.4-10.4); NEUTROPHILS % 62.4 % (40.0-76.0); PLATELET 312 x1000/uL (130-400); RED BLOOD CELL COUNT 4.09 mill/uL (4.7-6.1); RED CELL DISTRIBUTION WIDTH 14.7 % (11.6-14.6)
[2019-08-09] MEDS: IPRATROPIUM/ALBUTEROL 0.5-3(2.5)MG/3ML NEB HHN SCH ×4 (08:59→20:50)
[2019-08-09 09:26] LABS: CHLORIDE 107 mEq/L (98-107)
[2019-08-09 12:00] VITALS: BP 160/69
[2019-08-09 16:00] VITALS: BP 145/68
[2019-08-09 20:00] VITALS: BP 129/83
[2019-08-09] MEDS: ATORVASTATIN CALCIUM 10MG TABLET PO SCH (21:00)
[2019-08-09] MEDS: ENOXAPARIN 40MG/0.4ML SYR SUBCUT SCH (21:00)
[2019-08-09] MEDS: FAMOTIDINE 40MG TABLET PO SCH (21:00)
[2019-08-09] MEDS: INSULIN GLARGINE UD 100 UNITS/ML SYR SUBCUT SCH (22:00)
[2019-08-10] VITALS: BP 140/53
[2019-08-10 04:00] VITALS: BP 125/71
[2019-08-10] MEDS: BLOOD SUGAR DIAGNOSTIC STRIP TEST SCH ×2 (06:21→21:00)
[2019-08-10] MEDS: METFORMIN HCL 850MG TABLET PO SCH ×2 (06:22→16:47)
[2019-08-10] MEDS: NAPROXEN 250MG TABLET PO SCH (06:22)
[2019-08-10] MEDS: INSULIN LISPRO 100 UNITS/ML SUBCUT SCH ×2 (06:22→21:00)
[2019-08-10] MEDS: IPRATROPIUM/ALBUTEROL 0.5-3(2.5)MG/3ML NEB HHN SCH ×4 (07:52→21:17)
[2019-08-10] MEDS: ACETAMINOPHEN 325MG TABLET PO PRN (08:40)
[2019-08-10] MEDS: ASPIRIN 81MG TABLET PO SCH (08:41)
[2019-08-10] MEDS: QUETIAPINE FUMARATE 25MG TABLET PO SCH ×2 (08:41→16:47)
[2019-08-10] MEDS: HYDROCORTISONE 1% CREAM 30GM TOP SCH ×2 (08:42→21:00)
[2019-08-10] MEDS: LEVETIRACETAM 250MG TABLET PO SCH ×2 (08:44→21:00)
[2019-08-10] MEDS ORDERED: IBUPROFEN 600MG TABLET PO PRN (09:15)
[2019-08-10 12:00] VITALS: BP 156/61
[2019-08-10] MEDS ORDERED: NAPROXEN 250MG TABLET PO PRN (13:15)
[2019-08-10 16:00] VITALS: BP 160/91
[2019-08-10 20:00] VITALS: BP 141/75
[2019-08-10] MEDS: FAMOTIDINE 40MG TABLET PO SCH (21:00)
[2019-08-10] MEDS: ENOXAPARIN 40MG/0.4ML SYR SUBCUT SCH (21:00)
[2019-08-10] MEDS: ATORVASTATIN CALCIUM 10MG TABLET PO SCH (21:00)
[2019-08-10] MEDS: INSULIN GLARGINE UD 100 UNITS/ML SYR SUBCUT SCH (22:00)
[2019-08-11] VITALS: BP 139/79
[2019-08-11] MEDS: IPRATROPIUM/ALBUTEROL 0.5-3(2.5)MG/3ML NEB HHN SCH ×5 (01:36→16:24)
[2019-08-11 04:00] VITALS: BP 157/95
[2019-08-11] MEDS: INSULIN LISPRO 100 UNITS/ML SUBCUT SCH (06:45)
[2019-08-11] MEDS: BLOOD SUGAR DIAGNOSTIC STRIP TEST SCH (06:45)
[2019-08-11 08:00] VITALS: BP 178/102
[2019-08-11] MEDS: CLONIDINE 0.1MG TABLET PO PRN (08:24)
[2019-08-11] MEDS: METFORMIN HCL 850MG TABLET PO SCH ×2 (08:24→17:15)
[2019-08-11] MEDS: LEVETIRACETAM 250MG TABLET PO SCH (08:45)
[2019-08-11] MEDS: ASPIRIN 81MG TABLET PO SCH (08:45)
[2019-08-11] MEDS: QUETIAPINE FUMARATE 25MG TABLET PO SCH ×2 (08:45→17:34)
[2019-08-11] MEDS: HYDROCORTISONE 1% CREAM 30GM TOP SCH (08:45)
[2019-08-11 12:00] VITALS: BP 150/70
[2019-08-11 16:00] VITALS: BP 141/77
[2019-08-11 17:51] VITALS: BP 141/77
== END 2019-08-11 18:50 | disposition home or self-care (01) | DRG 720 ==
LOC: ER 10:20 → CVICU 14:01 → EDBEDREQ 14:04 → EDBEDREQSVC 14:04 → ENRESERV 14:30 → CANRESERV 14:30 → ENRESERV 14:35 → CANRESERV 14:35 → ENRESERV 14:36 → 5WST 08-01 07:50
PROVIDERS: ADMIT Internal Medicine; ATTEND Internal Medicine
PROC: 5A1955Z Respiratory Ventilation, Greater than 96 Consecutive Hours (ICD-10-PCS; principal; 2019-07-25)
PROC: 0BH17EZ Insertion of Endotracheal Airway into Trachea, Via Natural or Artificial Opening (ICD-10-PCS; 2019-07-25)
PROC: 4A00X4Z Measurement of Central Nervous Electrical Activity, External Approach (ICD-10-PCS; 2019-07-28)
PROC: 5A09357 Assistance with Respiratory Ventilation, Less than 24 Consecutive Hours, Continuous Positive Airway Pressure (ICD-10-PCS; 2019-08-03)
PROC: 5A09357 Assistance with Respiratory Ventilation, Less than 24 Consecutive Hours, Continuous Positive Airway Pressure (ICD-10-PCS; 2019-08-04)
DX: A41.9 Sepsis, unspecified organism (principal); J96.00 Acute respiratory failure, unspecified whether with hypoxia or hypercapnia; I63.9 Cerebral infarction, unspecified; E87.6 Hypokalemia; E83.42 Hypomagnesemia; E11.9 Type 2 diabetes mellitus without complications; E78.00 Pure hypercholesterolemia, unspecified; E78.5 Hyperlipidemia, unspecified; F03.90 Unspecified dementia, unspecified severity, without behavioral disturbance, psychotic disturbance, mood disturbance, and anxiety; I25.10 Atherosclerotic heart disease of native coronary artery without angina pectoris; J44.9 Chronic obstructive pulmonary disease, unspecified; G93.41 Metabolic encephalopathy; I10 Essential (primary) hypertension; G40.409 Other generalized epilepsy and epileptic syndromes, not intractable, without status epilepticus; Z95.1 Presence of aortocoronary bypass graft; Z78.1 Physical restraint status
CPT/HCPCS: 36415; 36600; 70551; 71045; 72040; 80048; 80053; 80061; 80305; 81003; 82375; 82805; 82962; 83036; 83605; 83721; 83735; 83880; 84100; 84443; 84478; 84484; 85025; 87070; 87804; 92610; 93005; 93306; 93880; 94003; 94640; 94660; 96365; 96375; 96376; 97116; 97162; 97166; 97530; 97535; 99291; A6261; C1893; C9113; J0360; J0456; J0696; J1650; J1815; J1953; J2060; J2250; J2543; J2704; J3010; J3475; J7030; J7040; J7050; J7060; J7131; Q0163

== ENCOUNTER 2020-01-16 14:08 | Emergency (ER) | payer MEDICAID ==
[~2020-01-16] VITALS: Ht 162.6 cm; Wt 82.0 kg
[2020-01-16] MEDS ORDERED: SODIUM CHLORIDE 0.9% 500 ML IV ONE (14:30)
[2020-01-16 14:44] LABS: BASOPHILS % 0.5 % (0.0-2.0); EOSINOPHILS % 2.7 % (0.0-5.0); HEMATOCRIT. 38.1 % (42.0-52.0); HEMOGLOBIN. 12.5 g/dL (14.0-18.0); LYMPHOCYTES % 27.1 % (20.0-50.0); MEAN CORPUSCULAR HEMOGLOBIN 30.5 pg (28.0-32.0); MEAN PLATELET VOLUME 8.7 fl (7.4-10.4); MONOCYTES % 9.5 % (2.0-8.0); NEUTROPHILS % 60.2 % (40.0-76.0); PLATELET 152 x1000/uL (130-400); RED CELL DISTRIBUTION WIDTH 16.7 % (11.6-14.6)
[2020-01-16 14:51] LABS: CHLORIDE 107 mEq/L (98-107)
[2020-01-16 16:50] LABS: CLARITY URINE CLEAR (CLEAR); COLOR URINE YELLOW (YELLOW); KETONES URINE TRACE (NEGATIVE); LEUKOCYTE ESTERASE URINE NEGATIVE (NEGATIVE); NITRITE URINE NEGATIVE (NEGATIVE); OCCULT BLOOD URINE NEGATIVE (NEGATIVE); PH URINE 6.5 (4.5-8.0); PROTEIN URINE TRACE (NEGATIVE); SPECIFIC GRAVITY URINE 1.023 (1.005-1.030)
[2020-01-16 18:20] VITALS: BP 158/68
== END 2020-01-16 19:00 | disposition home or self-care (01) ==
LOC: ER 14:19
DX: R55 Syncope and collapse (principal); I10 Essential (primary) hypertension; E11.9 Type 2 diabetes mellitus without complications; J44.9 Chronic obstructive pulmonary disease, unspecified; E78.00 Pure hypercholesterolemia, unspecified
CPT/HCPCS: 36415; 70450; 71045; 80053; 81003; 83880; 84484; 85025; 93005; 96360; 96361; 99285; J7040

== ENCOUNTER 2021-03-07 23:48 | Inpatient (IN) | payer MEDICAID ==
[~2021-03-07] VITALS: Ht 160 cm; Wt 68.9 kg
[2021-03-08] MEDS ORDERED: PIPERACILLIN/TAZ 3.375G PREMIX 50 ML IV ONE
[2021-03-08] MEDS ORDERED: SODIUM CHLORIDE 0.9% 1000ML BAG (SEPSIS BOLUS) IV ONE
[2021-03-08] MEDS ORDERED: VANCOMYCIN 1 G PREMIX 200 ML IV ONE
[2021-03-08] MEDS ORDERED: ACETAMINOPHEN 325MG TABLET PO ONE (00:45)
[2021-03-08 00:57] LABS: HEMATOCRIT. 41.3 % (42.0-52.0); HEMOGLOBIN. 13.7 g/dL (14.0-18.0); MEAN CORPUSCULAR HEMOGLOBIN 31.9 pg (28.0-32.0); MEAN CORPUSCULAR VOLUME 96.2 fL (80.0-94.0); MEAN PLATELET VOLUME 9.1 fl (7.4-10.4); PLATELET 150 x1000/uL (130-400); RED CELL DISTRIBUTION WIDTH 14.9 % (11.6-14.6)
[2021-03-08 01:05] LABS: CHLORIDE 99 mEq/L (98-107)
[2021-03-08] MEDS ORDERED: ASPIRIN 325MG EC TABLET PO NR (01:30)
[2021-03-08 01:58] LABS: INR 1.1; PROTHROMBIN TIME 11.5 sec (9.6-11.0)
[2021-03-08] MEDS ORDERED: NOREPINEPHRINE 8MG/250ML PMX 250 ML IV STA ×2 (04:34→05:22)
[2021-03-08 04:43] LABS: PLATELET ESTIMATE NORMAL
[2021-03-08 08:25] LABS: CLARITY URINE CLEAR (CLEAR); COLOR URINE YELLOW (YELLOW); KETONES URINE NEGATIVE (NEGATIVE); LEUKOCYTE ESTERASE URINE 1+ (NEGATIVE); NITRITE URINE POSITIVE (NEGATIVE); OCCULT BLOOD URINE TRACE (NEGATIVE); PH URINE 5.5 (4.5-8.0); PROTEIN URINE 1+ (NEGATIVE); SPECIFIC GRAVITY URINE 1.019 (1.005-1.030)
[2021-03-08 09:58] VITALS: BP 192/78
[2021-03-08] MEDS ORDERED: CLOP75TA4 MT (10:48)
[2021-03-08] MEDS ORDERED: COR6 PO (10:51)
[2021-03-08] MEDS ORDERED: AMLO5TAB4 PO (10:51)
[2021-03-08] MEDS ORDERED: LISI-651 MT (10:51)
[2021-03-08] MEDS ORDERED: METF-874 PO (10:55)
[2021-03-08 12:00] VITALS: BP_SYST 106; BP_SYST 182; BP_DIAS 46; BP_DIAS 88
[2021-03-08] MEDS: AMLODIPINE 5MG TABLET PO SCH (13:17)
[2021-03-08] MEDS: LISINOPRIL 10MG TABLET PO SCH (13:17)
[2021-03-08] MEDS: CLOPIDOGREL 75MG TABLET PO SCH (13:18)
[2021-03-08] MEDS: CARVEDILOL 6.25 MG TABLET PO SCH ×2 (13:18→22:02)
[2021-03-08 15:30] VITALS: BP 101/66
[2021-03-08] MEDS: METFORMIN HCL 500MG TABLET PO SCH (17:12)
[2021-03-08] MEDS: BLOOD SUGAR DIAGNOSTIC STRIP TEST SCH ×2 (17:36→20:38)
[2021-03-08 20:00] VITALS: BP 102/57
[2021-03-08] MEDS ORDERED: CEFEPIME 2,000 MG in DEXT 5% WATER 100 ML IV SCH (21:00)
[2021-03-09] VITALS: BP 107/53
[2021-03-09 04:00] VITALS: BP 106/67
[2021-03-09] MEDS: BLOOD SUGAR DIAGNOSTIC STRIP TEST SCH ×4 (06:18→20:32)
[2021-03-09 08:00] VITALS: BP 122/66
[2021-03-09] MEDS: CLOPIDOGREL 75MG TABLET PO SCH (09:18)
[2021-03-09] MEDS: AMLODIPINE 5MG TABLET PO SCH (09:18)
[2021-03-09] MEDS: CARVEDILOL 6.25 MG TABLET PO SCH ×2 (09:18→20:41)
[2021-03-09] MEDS: LISINOPRIL 10MG TABLET PO SCH (09:18)
[2021-03-09] MEDS: METFORMIN HCL 500MG TABLET PO SCH ×2 (09:18→17:42)
[2021-03-09 12:00] VITALS: BP 110/57
[2021-03-09] MEDS: CEFTRIAXONE 2 G in DEXTROSE 5% WATER 50 ML IV SCH (13:44)
[2021-03-09 16:00] VITALS: BP 134/69
[2021-03-09] MEDS ORDERED: NALOXONE HCL 0.4MG/ML VIAL IV PRN (18:00)
[2021-03-09] MEDS: HYDROCODONE/ACETAMINOPHEN 5/325MG TABLET PO PRN (18:37)
[2021-03-10] VITALS: BP 111/63
[2021-03-10 04:00] VITALS: BP 105/62
[2021-03-10] MEDS: HYDROCODONE/ACETAMINOPHEN 5/325MG TABLET PO PRN (04:00)
[2021-03-10] MEDS: BLOOD SUGAR DIAGNOSTIC STRIP TEST SCH ×4 (07:05→20:40)
[2021-03-10 08:00] VITALS: BP 138/64
[2021-03-10] MEDS: AMLODIPINE 5MG TABLET PO SCH (09:17)
[2021-03-10] MEDS: CLOPIDOGREL 75MG TABLET PO SCH (09:17)
[2021-03-10] MEDS: LISINOPRIL 10MG TABLET PO SCH (09:17)
[2021-03-10] MEDS: METFORMIN HCL 500MG TABLET PO SCH ×2 (09:17→18:44)
[2021-03-10] MEDS: CARVEDILOL 6.25 MG TABLET PO SCH ×2 (09:18→20:39)
[2021-03-10 09:55] LABS: HEMATOCRIT. 36.4 % (42.0-52.0); HEMOGLOBIN. 12.4 g/dL (14.0-18.0); MEAN CORPUSCULAR HEMOGLOBIN 32.5 pg (28.0-32.0); MEAN CORPUSCULAR VOLUME 95.4 fL (80.0-94.0); MEAN PLATELET VOLUME 9.5 fl (7.4-10.4); PLATELET 102 x1000/uL (130-400); RED BLOOD CELL COUNT 3.82 mill/uL (4.7-6.1); RED CELL DISTRIBUTION WIDTH 14.8 % (11.6-14.6)
[2021-03-10 12:00] VITALS: BP 164/106
[2021-03-10] MEDS: CEFTRIAXONE 2 G in DEXTROSE 5% WATER 50 ML IV SCH (14:05)
[2021-03-10] MEDS ORDERED: HYDRALAZINE 20MG/ML VIAL IV PRN (14:30)
[2021-03-10 16:00] VITALS: BP 127/70
[2021-03-10 20:00] VITALS: BP 106/56
[2021-03-10 20:29] LABS: PLATELET ESTIMATE DECREASED
[2021-03-11] VITALS: BP 102/63
[2021-03-11 04:00] VITALS: BP 106/55
[2021-03-11] MEDS: BLOOD SUGAR DIAGNOSTIC STRIP TEST SCH ×4 (07:22→21:00)
[2021-03-11 07:57] LABS: HEMATOCRIT. 38.6 % (42.0-52.0); HEMOGLOBIN. 12.6 g/dL (14.0-18.0); MEAN CORPUSCULAR HEMOGLOBIN 31.6 pg (28.0-32.0); MEAN CORPUSCULAR VOLUME 96.7 fL (80.0-94.0); MEAN PLATELET VOLUME 9.7 fl (7.4-10.4); PLATELET 99 x1000/uL (130-400); RED BLOOD CELL COUNT 3.99 mill/uL (4.7-6.1); RED CELL DISTRIBUTION WIDTH 14.6 % (11.6-14.6)
[2021-03-11 08:49] VITALS: BP 133/67
[2021-03-11] MEDS: METFORMIN HCL 500MG TABLET PO SCH ×2 (09:08→17:18)
[2021-03-11] MEDS: CARVEDILOL 6.25 MG TABLET PO SCH ×2 (09:11→22:37)
[2021-03-11] MEDS: LISINOPRIL 10MG TABLET PO SCH (09:11)
[2021-03-11] MEDS: AMLODIPINE 5MG TABLET PO SCH (09:11)
[2021-03-11] MEDS: CLOPIDOGREL 75MG TABLET PO SCH (09:12)
[2021-03-11] MEDS ORDERED: DEXTROSE 50% WATER 50ML SYRINGE IV PRN (12:00)
[2021-03-11 12:26] VITALS: BP 135/53
[2021-03-11] MEDS: INSULIN LISPRO 100 UNITS/ML SUBCUT SCH ×3 (12:31→22:34)
[2021-03-11] MEDS: CEFTRIAXONE 2 G in DEXTROSE 5% WATER 50 ML IV SCH (14:25)
[2021-03-11 16:00] VITALS: BP 118/64
[2021-03-11 20:00] VITALS: BP 128/71
[2021-03-12] VITALS: BP 118/60
[2021-03-12 04:00] VITALS: BP 121/66
[2021-03-12] MEDS: BLOOD SUGAR DIAGNOSTIC STRIP TEST SCH ×4 (07:11→20:44)
[2021-03-12] MEDS: INSULIN LISPRO 100 UNITS/ML SUBCUT SCH ×4 (07:16→20:44)
[2021-03-12 08:00] VITALS: BP 131/66
[2021-03-12] MEDS: CLOPIDOGREL 75MG TABLET PO SCH (08:56)
[2021-03-12] MEDS: METFORMIN HCL 500MG TABLET PO SCH ×2 (08:56→17:36)
[2021-03-12] MEDS: AMLODIPINE 5MG TABLET PO SCH (08:56)
[2021-03-12] MEDS: CARVEDILOL 6.25 MG TABLET PO SCH ×2 (08:57→20:44)
[2021-03-12] MEDS: LISINOPRIL 10MG TABLET PO SCH (08:57)
[2021-03-12] MEDS ORDERED: LIDOCAINE HCL 1% 20ML VIAL (Pyxis) INJ ONE (09:27)
[2021-03-12 10:06] LABS: PLATELET ESTIMATE DECREASED
[2021-03-12] MEDS: HYDROCODONE/ACETAMINOPHEN 5/325MG TABLET PO PRN (11:01)
[2021-03-12 12:00] VITALS: BP 114/61
[2021-03-12] MEDS: CEFTRIAXONE 2 G in DEXTROSE 5% WATER 50 ML IV SCH (13:21)
[2021-03-12 16:00] VITALS: BP 125/65
[2021-03-12 20:00] VITALS: BP 121/62
[2021-03-13] VITALS (7 sets, daily range): BP systolic 102–148; BP diastolic 53–77
[2021-03-13] MEDS: BLOOD SUGAR DIAGNOSTIC STRIP TEST SCH ×4 (06:31→20:51)
[2021-03-13] MEDS: INSULIN LISPRO 100 UNITS/ML SUBCUT SCH ×4 (06:31→20:51)
[2021-03-13] MEDS: METFORMIN HCL 500MG TABLET PO SCH ×2 (10:13→18:09)
[2021-03-13] MEDS: CLOPIDOGREL 75MG TABLET PO SCH (10:14)
[2021-03-13] MEDS: LISINOPRIL 10MG TABLET PO SCH (10:15)
[2021-03-13] MEDS: AMLODIPINE 5MG TABLET PO SCH (10:15)
[2021-03-13] MEDS: CARVEDILOL 6.25 MG TABLET PO SCH ×2 (10:16→20:50)
[2021-03-13] MEDS: CEFTRIAXONE 2 G in DEXTROSE 5% WATER 50 ML IV SCH (14:58)
[2021-03-14 04:00] VITALS: BP 130/77
[2021-03-14] MEDS: INSULIN LISPRO 100 UNITS/ML SUBCUT SCH ×4 (06:08→21:00)
[2021-03-14] MEDS: BLOOD SUGAR DIAGNOSTIC STRIP TEST SCH ×4 (06:08→21:31)
[2021-03-14 08:00] VITALS: BP 146/87
[2021-03-14] MEDS: CLOPIDOGREL 75MG TABLET PO SCH (09:25)
[2021-03-14] MEDS: AMLODIPINE 5MG TABLET PO SCH (09:26)
[2021-03-14] MEDS: HYDROCODONE/ACETAMINOPHEN 5/325MG TABLET PO PRN (09:26)
[2021-03-14] MEDS: LISINOPRIL 10MG TABLET PO SCH (09:26)
[2021-03-14] MEDS: CARVEDILOL 6.25 MG TABLET PO SCH ×2 (09:26→21:33)
[2021-03-14] MEDS: METFORMIN HCL 500MG TABLET PO SCH ×2 (09:27→17:48)
[2021-03-14 12:00] VITALS: BP 115/59
[2021-03-14] MEDS: CEFTRIAXONE 2 G in DEXTROSE 5% WATER 50 ML IV SCH (13:20)
[2021-03-14 16:00] VITALS: BP 95/59
[2021-03-14 20:00] VITALS: BP 115/62
[2021-03-15] VITALS: BP 116/70
[2021-03-15 04:00] VITALS: BP 139/89
[2021-03-15] MEDS: BLOOD SUGAR DIAGNOSTIC STRIP TEST SCH ×3 (06:24→17:10)
[2021-03-15 08:00] VITALS: BP 131/61
[2021-03-15] MEDS: LISINOPRIL 10MG TABLET PO SCH (08:57)
[2021-03-15] MEDS: CLOPIDOGREL 75MG TABLET PO SCH (08:57)
[2021-03-15] MEDS: AMLODIPINE 5MG TABLET PO SCH (08:57)
[2021-03-15] MEDS: INSULIN LISPRO 100 UNITS/ML SUBCUT SCH ×3 (08:58→17:40)
[2021-03-15] MEDS: METFORMIN HCL 500MG TABLET PO SCH ×2 (08:58→17:40)
[2021-03-15] MEDS: CARVEDILOL 6.25 MG TABLET PO SCH (08:59)
[2021-03-15 12:00] VITALS: BP 120/61
[2021-03-15] MEDS: CEFTRIAXONE 2 G in DEXTROSE 5% WATER 50 ML IV SCH (13:21)
[2021-03-15 15:22] VITALS: BP 120/57
[2021-03-15 16:00] VITALS: BP 120/57
[2021-03-15] MEDS ORDERED: HYDR-4001 MT (17:18)
== END 2021-03-15 18:30 | disposition home health service (06) | DRG 720 ==
LOC: ER 23:48 → EDBEDREQ 03-08 00:05 → MICUSO 03-08 01:36 → EDBEDREQDT 03-08 01:40 → EDBEDREQSVC 03-08 01:40 → EDBEDREQTM 03-08 01:40 → EDBEDREQ 03-08 01:40 → 7WST 03-08 08:45 → 8WST 03-08 15:11
PROVIDERS: ADMIT Internal Medicine; ATTEND Internal Medicine
PROC: 02HV33Z Insertion of Infusion Device into Superior Vena Cava, Percutaneous Approach (ICD-10-PCS; principal; 2021-03-12)
PROC: B548ZZA Ultrasonography of Superior Vena Cava, Guidance (ICD-10-PCS; 2021-03-12)
DX: A41.9 Sepsis, unspecified organism (principal); I21.4 Non-ST elevation (NSTEMI) myocardial infarction; G93.40 Encephalopathy, unspecified; E87.2 Acidosis; N39.0 Urinary tract infection, site not specified; E11.9 Type 2 diabetes mellitus without complications; B96.20 Unspecified Escherichia coli [E. coli] as the cause of diseases classified elsewhere; I10 Essential (primary) hypertension; I16.0 Hypertensive urgency; I25.10 Atherosclerotic heart disease of native coronary artery without angina pectoris; R65.20 Severe sepsis without septic shock; Z86.73 Personal history of transient ischemic attack (TIA), and cerebral infarction without residual deficits; Z95.1 Presence of aortocoronary bypass graft; Z20.822 Contact with and (suspected) exposure to COVID-19
CPT/HCPCS: 36415; 71045; 76770; 76937; 80048; 80053; 81003; 82962; 83605; 83880; 84145; 84484; 85025; 87077; 87186; 87426; 93005; 93306; 99285; C1725; J0360; J0692; J0696; J1815; J2543; J3370; J3490; J7030; J7040; J7060

== ENCOUNTER 2021-08-14 16:08 | Inpatient (IN) | payer MEDICAID ==
[~2021-08-14] VITALS: Ht 152.4 cm; Wt 68.5 kg
[~2021-08-14 16:08] MED LIST: AMLO5TAB4 PO; CLOP-31 MT; COR6 PO; HYDR-4001 MT; LISI-651 MT; METF-874 PO
[2021-08-14 17:17] LABS: BASOPHILS % 0.5 % (0.0-2.0); EOSINOPHILS % 0.2 % (0.0-5.0); HEMATOCRIT. 44.9 % (42.0-52.0); HEMOGLOBIN. 14.1 g/dL (14.0-18.0); LYMPHOCYTES % 17.4 % (20.0-50.0); MEAN CORPUSCULAR HEMOGLOBIN 29.6 pg (28.0-32.0); MEAN CORPUSCULAR VOLUME 94.3 fL (80.0-94.0); MEAN PLATELET VOLUME 9.1 fl (7.4-10.4); MONOCYTES % 9.6 % (2.0-8.0); NEUTROPHILS % 72.3 % (40.0-76.0); PLATELET 209 x1000/uL (130-400); RED BLOOD CELL COUNT 4.76 mill/uL (4.7-6.1); RED CELL DISTRIBUTION WIDTH 15.7 % (11.6-14.6)
[2021-08-14 17:22] LABS: CHLORIDE 103 mEq/L (98-107)
[2021-08-15] MEDS ORDERED: TRAMADOL 50MG TABLET PO PRN (01:15)
[2021-08-15] MEDS ORDERED: CLONIDINE 0.1MG TABLET PO PRN (01:15)
[2021-08-15] MEDS ORDERED: ACETAMINOPHEN 325MG TABLET PO PRN (01:15)
[2021-08-15 02:02] LABS: CLARITY URINE CLEAR (CLEAR); COLOR URINE YELLOW (YELLOW); KETONES URINE 3+ (NEGATIVE); LEUKOCYTE ESTERASE URINE 1+ (NEGATIVE); NITRITE URINE NEGATIVE (NEGATIVE); OCCULT BLOOD URINE TRACE (NEGATIVE); PH URINE 5.5 (4.5-8.0); PROTEIN URINE 2+ (NEGATIVE); SPECIFIC GRAVITY URINE 1.027 (1.005-1.030)
[2021-08-15] MEDS ORDERED: CEFTRIAXONE 1 G PREMIX 50 ML IV SCH (09:00)
[2021-08-15] MEDS: CEFTRIAXONE 1,000 MG in DEXTROSE 5% WATER 50 ML IV SCH (09:51)
[2021-08-15] MEDS: AMLODIPINE 5MG TABLET PO SCH (09:51)
[2021-08-15] MEDS: ENOXAPARIN 40MG/0.4ML SYR SUBCUT SCH (09:54)
[2021-08-15] MEDS: CARVEDILOL 6.25 MG TABLET PO SCH ×2 (10:00→23:42)
[2021-08-15] MEDS ORDERED: DEXTROSE 50% WATER 50ML SYRINGE IV PRN (17:15)
[2021-08-15] MEDS: CLOPIDOGREL 75MG TABLET PO SCH (17:50)
[2021-08-15 21:57] VITALS: BP 156/97
[2021-08-15] MEDS: BLOOD SUGAR DIAGNOSTIC STRIP TEST SCH (23:46)
[2021-08-16] VITALS: BP 146/88
[2021-08-16] MEDS: INSULIN LISPRO 100 UNITS/ML SUBCUT SCH ×5 (00:08→21:00)
[2021-08-16 00:25] VITALS: BP 120/56
[2021-08-16 04:00] VITALS: BP 141/84
[2021-08-16 06:26] LABS: CHLORIDE 109 mEq/L (98-107)
[2021-08-16] MEDS: BLOOD SUGAR DIAGNOSTIC STRIP TEST SCH ×4 (06:26→21:00)
[2021-08-16 06:48] LABS: BASOPHILS % 0.8 % (0.0-2.0); EOSINOPHILS % 1.9 % (0.0-5.0); HEMATOCRIT. 39.1 % (42.0-52.0); HEMOGLOBIN. 12.7 g/dL (14.0-18.0); LYMPHOCYTES % 36.4 % (20.0-50.0); MEAN CORPUSCULAR HEMOGLOBIN 30.4 pg (28.0-32.0); MEAN CORPUSCULAR VOLUME 93.9 fL (80.0-94.0); MEAN PLATELET VOLUME 9.4 fl (7.4-10.4); MONOCYTES % 12.2 % (2.0-8.0); NEUTROPHILS % 48.7 % (40.0-76.0); PLATELET 158 x1000/uL (130-400); RED BLOOD CELL COUNT 4.17 mill/uL (4.7-6.1); RED CELL DISTRIBUTION WIDTH 15.5 % (11.6-14.6)
[2021-08-16] MEDS: AMLODIPINE 5MG TABLET PO SCH (09:14)
[2021-08-16] MEDS: CARVEDILOL 6.25 MG TABLET PO SCH ×2 (09:14→21:00)
[2021-08-16] MEDS: ENOXAPARIN 40MG/0.4ML SYR SUBCUT SCH (09:15)
[2021-08-16] MEDS: CLOPIDOGREL 75MG TABLET PO SCH (09:15)
[2021-08-16] MEDS: CEFTRIAXONE 1,000 MG in DEXTROSE 5% WATER 50 ML IV SCH (10:00)
[2021-08-16 12:00] VITALS: BP 156/79
[2021-08-16 16:00] VITALS: BP 131/77
[2021-08-16 20:00] VITALS: BP 101/72
[2021-08-17 04:00] VITALS: BP 130/85
[2021-08-17] MEDS: BLOOD SUGAR DIAGNOSTIC STRIP TEST SCH ×4 (06:50→21:00)
[2021-08-17] MEDS: INSULIN LISPRO 100 UNITS/ML SUBCUT SCH ×4 (07:50→21:10)
[2021-08-17 08:45] VITALS: BP 165/91
[2021-08-17] MEDS: CLOPIDOGREL 75MG TABLET PO SCH (09:56)
[2021-08-17] MEDS: AMLODIPINE 5MG TABLET PO SCH (09:58)
[2021-08-17] MEDS: CARVEDILOL 6.25 MG TABLET PO SCH ×2 (09:59→20:44)
[2021-08-17] MEDS: ENOXAPARIN 40MG/0.4ML SYR SUBCUT SCH (10:00)
[2021-08-17 12:00] VITALS: BP 135/89
[2021-08-17] MEDS: CEFTRIAXONE 1,000 MG in DEXTROSE 5% WATER 50 ML IV SCH (15:40)
[2021-08-17 16:30] VITALS: BP 142/67
[2021-08-17 20:30] VITALS: BP 108/59
[2021-08-18 00:30] VITALS: BP 124/58
[2021-08-18 04:00] VITALS: BP 141/83
[2021-08-18] MEDS: BLOOD SUGAR DIAGNOSTIC STRIP TEST SCH ×2 (07:20→12:20)
[2021-08-18] MEDS: INSULIN LISPRO 100 UNITS/ML SUBCUT SCH ×2 (07:50→12:50)
[2021-08-18 08:00] VITALS: BP 153/82
[2021-08-18] MEDS: CLOPIDOGREL 75MG TABLET PO SCH (10:12)
[2021-08-18] MEDS: AMLODIPINE 5MG TABLET PO SCH (10:12)
[2021-08-18] MEDS: CEFTRIAXONE 1,000 MG in DEXTROSE 5% WATER 50 ML IV SCH (10:13)
[2021-08-18] MEDS: CARVEDILOL 6.25 MG TABLET PO SCH (10:13)
[2021-08-18] MEDS: ENOXAPARIN 40MG/0.4ML SYR SUBCUT SCH (10:17)
[2021-08-18 12:00] VITALS: BP 100/50
[2021-08-18] MEDS ORDERED: SULF1TAB47 MT (13:14)
[2021-08-18] MEDS ORDERED: SULFAMETHOXAZOLE/TRIMETHOPRIM 800/160MG TABLET PO SCH (15:00)
[2021-08-18 15:48] VITALS: BP 100/50
== END 2021-08-18 17:36 | disposition home or self-care (01) | DRG 463 ==
LOC: ER 16:08 → MICUSO 23:06 → EDBEDREQTM 23:17 → EDBEDREQ 23:17 → 6WST 08-15 23:29
PROVIDERS: ADMIT Family Medicine Adult Medicine; ATTEND Family Medicine Adult Medicine
DX: N39.0 Urinary tract infection, site not specified (principal); I11.0 Hypertensive heart disease with heart failure; I50.9 Heart failure, unspecified; E11.9 Type 2 diabetes mellitus without complications; R51.9 Headache, unspecified; Z20.822 Contact with and (suspected) exposure to COVID-19; I25.10 Atherosclerotic heart disease of native coronary artery without angina pectoris; W18.39XA Other fall on same level, initial encounter; Z95.1 Presence of aortocoronary bypass graft; Z86.73 Personal history of transient ischemic attack (TIA), and cerebral infarction without residual deficits; Y93.89 Activity, other specified; Y92.89 Other specified places as the place of occurrence of the external cause; Y99.8 Other external cause status; Z87.440 Personal history of urinary (tract) infections; Z86.69 Personal history of other diseases of the nervous system and sense organs
CPT/HCPCS: 36415; 71045; 73521; 80048; 80053; 81003; 82962; 83605; 83880; 84484; 85025; 87077; 87186; 87426; 93005; 99285; J0696; J1650; J1815; J7060

== ENCOUNTER 2021-09-24 10:40 | Emergency (ER) | payer MEDICAID ==
[~2021-09-24] VITALS: Ht 162.6 cm; Wt 61.0 kg
[~2021-09-24 10:40] MED LIST changes: +SULF1TAB47 MT
[2021-09-24] MEDS ORDERED: KETOROLAC 30MG/ML VIAL IV STA (11:44)
[2021-09-24] MEDS ORDERED: SODIUM CHLORIDE 0.9% 1,000 ML IV ONE (11:45)
[2021-09-24 12:39] LABS: BASOPHILS % 0.6 % (0.0-2.0); EOSINOPHILS % 1.5 % (0.0-5.0); HEMATOCRIT. 37.9 % (42.0-52.0); HEMOGLOBIN. 12.1 g/dL (14.0-18.0); LYMPHOCYTES % 27.1 % (20.0-50.0); MEAN CORPUSCULAR HEMOGLOBIN 29.9 pg (28.0-32.0); MEAN CORPUSCULAR VOLUME 93.2 fL (80.0-94.0); MEAN PLATELET VOLUME 8.7 fl (7.4-10.4); MONOCYTES % 10.9 % (2.0-8.0); NEUTROPHILS % 59.9 % (40.0-76.0); PLATELET 180 x1000/uL (130-400); RED BLOOD CELL COUNT 4.06 mill/uL (4.7-6.1)
[2021-09-24 12:48] LABS: CHLORIDE 109 mEq/L (98-107)
[2021-09-24 13:04] LABS: CLARITY URINE CLEAR (CLEAR); COLOR URINE YELLOW (YELLOW); KETONES URINE TRACE (NEGATIVE); LEUKOCYTE ESTERASE URINE NEGATIVE (NEGATIVE); NITRITE URINE NEGATIVE (NEGATIVE); OCCULT BLOOD URINE NEGATIVE (NEGATIVE); PH URINE 6.5 (4.5-8.0); PROTEIN URINE NEGATIVE (NEGATIVE); SPECIFIC GRAVITY URINE 1.013 (1.005-1.030)
[2021-09-24 13:49] VITALS: BP 138/66
== END 2021-09-24 19:56 | disposition home or self-care (01) ==
LOC: ER 10:49
DX: N20.0 Calculus of kidney (principal); E11.9 Type 2 diabetes mellitus without complications; I10 Essential (primary) hypertension; E78.00 Pure hypercholesterolemia, unspecified; I25.2 Old myocardial infarction; Z79.899 Other long term (current) drug therapy; Z79.84 Long term (current) use of oral hypoglycemic drugs
CPT/HCPCS: 36415; 74176; 80053; 81003; 83605; 83690; 85025; 96361; 96374; 99284; J1885; J7030

== ENCOUNTER 2021-11-20 15:59 | Inpatient (IN) | payer MEDICAID ==
[~2021-11-20] VITALS: Ht 167.6 cm; Wt 69.6 kg
[2021-11-20] MEDS ORDERED: SODIUM CHLORIDE 0.9% 1,000 ML IV ONE (17:15)
[2021-11-20 17:19] LABS: BASOPHILS % 0.5 % (0.0-2.0); EOSINOPHILS % 0.4 % (0.0-5.0); HEMATOCRIT. 39.5 % (42.0-52.0); HEMOGLOBIN. 12.7 g/dL (14.0-18.0); LYMPHOCYTES % 20.9 % (20.0-50.0); MEAN CORPUSCULAR HEMOGLOBIN 29.4 pg (28.0-32.0); MEAN CORPUSCULAR VOLUME 91.5 fL (80.0-94.0); MEAN PLATELET VOLUME 9.1 fl (7.4-10.4); MONOCYTES % 8.1 % (2.0-8.0); NEUTROPHILS % 70.1 % (40.0-76.0); PLATELET 176 x1000/uL (130-400); RED BLOOD CELL COUNT 4.31 mill/uL (4.7-6.1); RED CELL DISTRIBUTION WIDTH 15.2 % (11.6-14.6)
[2021-11-20 17:26] LABS: PROTHROMBIN TIME 10.9 sec (9.6-11.0)
[2021-11-20 17:35] LABS: CHLORIDE 105 mEq/L (98-107)
[2021-11-20 17:43] LABS: CREATINE KINASE 77 IU/L (39-308)
[2021-11-20 20:49] LABS: CLARITY URINE CLEAR (CLEAR); COLOR URINE YELLOW (YELLOW); KETONES URINE NEGATIVE (NEGATIVE); LEUKOCYTE ESTERASE URINE NEGATIVE (NEGATIVE); NITRITE URINE NEGATIVE (NEGATIVE); OCCULT BLOOD URINE NEGATIVE (NEGATIVE); PH URINE 6.5 (4.5-8.0); PROTEIN URINE TRACE (NEGATIVE); SPECIFIC GRAVITY URINE 1.023 (1.005-1.030)
[2021-11-20 21:05] LABS: *BARBITURATES SCREEN URINE NEGATIVE (NEGATIVE)
[2021-11-20 21:06] LABS: *AMPHETAMINES SCREEN URINE NEGATIVE (NEGATIVE); *BENZODIAZEPINES SCREEN URINE NEGATIVE (NEGATIVE); *COCAINE SCREEN URINE NEGATIVE (NEGATIVE); CANNABINOID URINE SCREEN PRESUMTIVE POSITIVE (NEGATIVE); METHADONE URINE SCREEN NEGATIVE (NEGATIVE); OPIATES URINE SCREEN NEGATIVE (NEGATIVE); PHENCYCLIDINE URINE SCREEN NEGATIVE (NEGATIVE)
[2021-11-20] MEDS ORDERED: GUAIFENESIN 200MG/10ML SUGAR FREE UDC PO PRN (21:45)
[2021-11-20] MEDS ORDERED: DEXTROSE 50% WATER 50ML SYRINGE IV PRN (21:45)
[2021-11-20] MEDS ORDERED: DOCUSATE SODIUM 100MG CAPSULE PO PRN (21:45)
[2021-11-20] MEDS ORDERED: IPRATROPIUM/ALBUTEROL 0.5-3(2.5)MG/3ML NEB HHN PRN (21:45)
[2021-11-20] MEDS ORDERED: ACETAMINOPHEN 325MG TABLET PO PRN (21:45)
[2021-11-20] MEDS ORDERED: LORAZEPAM 2MG/ML CPJ IV PRN (21:45)
[2021-11-20] MEDS ORDERED: ONDANSETRON HCL 4MG/2ML INJ IV PRN (21:45)
[2021-11-20] MEDS ORDERED: DIPHENHYDRAMINE 50MG/ML VIAL IV PRN (21:45)
[2021-11-20] MEDS ORDERED: MORPHINE SULFATE 2 MG/ML CPJ (NOT FOR IM USE) IV PRN (21:45)
[2021-11-20] MEDS ORDERED: MAGNESIUM/ALUMINUM HYDROXIDE/SIMETHICONE 30ML UDC PO PRN (21:45)
[2021-11-20] MEDS ORDERED: HYDRALAZINE 20MG/ML VIAL IV PRN (21:45)
[2021-11-20] MEDS: SODIUM CHLORIDE 0.9% INJ 3ML FLUSH IVF SCH (22:00)
[2021-11-20] MEDS: SODIUM CHLORIDE 0.45% 1,000 ML IV SCH (23:36)
[2021-11-20] MEDS: ENOXAPARIN 40MG/0.4ML SYR SUBCUT SCH (23:37)
[2021-11-20] MEDS: HYDROCODONE/ACETAMINOPHEN 5/325MG TABLET PO PRN (23:56)
[2021-11-21 04:08] LABS: BASOPHILS % 0.7 % (0.0-2.0); EOSINOPHILS % 1.4 % (0.0-5.0); HEMATOCRIT. 37.3 % (42.0-52.0); HEMOGLOBIN. 11.8 g/dL (14.0-18.0); LYMPHOCYTES % 32.4 % (20.0-50.0); MEAN CORPUSCULAR HEMOGLOBIN 28.8 pg (28.0-32.0); MEAN CORPUSCULAR VOLUME 91.3 fL (80.0-94.0); MEAN PLATELET VOLUME 9.3 fl (7.4-10.4); MONOCYTES % 10.7 % (2.0-8.0); NEUTROPHILS % 54.8 % (40.0-76.0); PLATELET 150 x1000/uL (130-400); RED BLOOD CELL COUNT 4.09 mill/uL (4.7-6.1); RED CELL DISTRIBUTION WIDTH 14.9 % (11.6-14.6)
[2021-11-21 04:29] LABS: CHLORIDE 109 mEq/L (98-107)
[2021-11-21] MEDS: SODIUM CHLORIDE 0.9% INJ 3ML FLUSH IVF SCH ×3 (06:04→22:02)
[2021-11-21] MEDS: BLOOD SUGAR DIAGNOSTIC STRIP TEST SCH ×4 (06:44→21:00)
[2021-11-21] MEDS: INSULIN LISPRO 100 UNITS/ML SUBCUT SCH ×4 (06:45→22:02)
[2021-11-21 12:00] VITALS: BP 168/78
[2021-11-21] MEDS: CLONIDINE 0.1MG TABLET PO PRN (12:20)
[2021-11-21 12:53] VITALS: BP 168/78
[2021-11-21 16:00] VITALS: BP 150/72
[2021-11-21 20:00] VITALS: BP 165/66
[2021-11-21] MEDS: SODIUM CHLORIDE 0.45% 1,000 ML IV SCH (21:45)
[2021-11-21] MEDS: ENOXAPARIN 40MG/0.4ML SYR SUBCUT SCH (22:01)
[2021-11-22] VITALS: BP 152/74
[2021-11-22 04:00] VITALS: BP 98/65
[2021-11-22] MEDS: SODIUM CHLORIDE 0.9% INJ 3ML FLUSH IVF SCH ×4 (05:40→22:00)
[2021-11-22] MEDS: BLOOD SUGAR DIAGNOSTIC STRIP TEST SCH ×4 (06:43→21:00)
[2021-11-22] MEDS: INSULIN LISPRO 100 UNITS/ML SUBCUT SCH ×4 (06:43→21:00)
[2021-11-22 08:00] VITALS: BP 160/85
[2021-11-22 09:34] LABS: BASOPHILS % 0.7 % (0.0-2.0); EOSINOPHILS % 2.2 % (0.0-5.0); HEMATOCRIT. 36.8 % (42.0-52.0); HEMOGLOBIN. 11.6 g/dL (14.0-18.0); LYMPHOCYTES % 27.1 % (20.0-50.0); MEAN CORPUSCULAR HEMOGLOBIN 28.9 pg (28.0-32.0); MEAN CORPUSCULAR VOLUME 91.5 fL (80.0-94.0); MEAN PLATELET VOLUME 9.1 fl (7.4-10.4); MONOCYTES % 8.9 % (2.0-8.0); NEUTROPHILS % 61.1 % (40.0-76.0); PLATELET 147 x1000/uL (130-400); RED BLOOD CELL COUNT 4.02 mill/uL (4.7-6.1); RED CELL DISTRIBUTION WIDTH 15.2 % (11.6-14.6)
[2021-11-22 09:46] LABS: CHLORIDE 106 mEq/L (98-107)
[2021-11-22 09:53] LABS: LDL CHOLESTEROL 90 mg/dL (5-100)
[2021-11-22 09:54] LABS: HDL CHOLESTEROL 46 mg/dL (40-59)
[2021-11-22 09:55] LABS: T4 FREE 0.98 ng/dL (0.76-1.46)
[2021-11-22 12:00] VITALS: BP 132/72
[2021-11-22 16:00] VITALS: BP 112/56
[2021-11-22 20:00] VITALS: BP 132/54
[2021-11-22] MEDS: SODIUM CHLORIDE 0.45% 1,000 ML IV SCH (21:45)
[2021-11-22] MEDS: ENOXAPARIN 40MG/0.4ML SYR SUBCUT SCH (22:00)
[2021-11-23] VITALS: BP 119/68
[2021-11-23 04:00] VITALS: BP 144/82
[2021-11-23] MEDS: SODIUM CHLORIDE 0.9% INJ 3ML FLUSH IVF SCH ×3 (06:00→22:00)
[2021-11-23 06:07] LABS: BASOPHILS % 0.7 % (0.0-2.0); HEMATOCRIT. 38.2 % (42.0-52.0); HEMOGLOBIN. 12.1 g/dL (14.0-18.0); LYMPHOCYTES % 26.2 % (20.0-50.0); MEAN CORPUSCULAR HEMOGLOBIN 28.6 pg (28.0-32.0); MEAN CORPUSCULAR VOLUME 90.2 fL (80.0-94.0); MEAN PLATELET VOLUME 9.1 fl (7.4-10.4); MONOCYTES % 9.8 % (2.0-8.0); NEUTROPHILS % 61.3 % (40.0-76.0); PLATELET 156 x1000/uL (130-400); RED BLOOD CELL COUNT 4.23 mill/uL (4.7-6.1); RED CELL DISTRIBUTION WIDTH 15.2 % (11.6-14.6)
[2021-11-23 06:11] LABS: CHLORIDE 109 mEq/L (98-107)
[2021-11-23] MEDS: BLOOD SUGAR DIAGNOSTIC STRIP TEST SCH ×4 (06:39→21:00)
[2021-11-23] MEDS: INSULIN LISPRO 100 UNITS/ML SUBCUT SCH ×4 (06:39→21:00)
[2021-11-23 08:00] VITALS: BP 158/75
[2021-11-23] MEDS: HYDROCODONE/ACETAMINOPHEN 5/325MG TABLET PO PRN (10:00)
[2021-11-23] MEDS: LOSARTAN POTASSIUM 50 MG TABLET PO SCH (11:57)
[2021-11-23] MEDS: ASPIRIN 81MG TABLET PO SCH (11:57)
[2021-11-23] MEDS: CARVEDILOL 3.125 MG TABLET PO SCH ×2 (11:57→21:00)
[2021-11-23 12:00] VITALS: BP 153/76
[2021-11-23 16:00] VITALS: BP 160/78
[2021-11-23 16:59] LABS: VITAMIN B12 SERUM 216 pg/mL (211-911)
[2021-11-23] MEDS: CLONIDINE 0.1MG TABLET PO PRN (17:58)
[2021-11-23 20:00] VITALS: BP 150/66
[2021-11-23] MEDS: SODIUM CHLORIDE 0.45% 1,000 ML IV SCH (21:45)
[2021-11-23] MEDS: ENOXAPARIN 40MG/0.4ML SYR SUBCUT SCH (22:00)
[2021-11-24 04:00] VITALS: BP 179/84
[2021-11-24] MEDS: SODIUM CHLORIDE 0.9% INJ 3ML FLUSH IVF SCH ×2 (04:17→12:32)
[2021-11-24] MEDS: CLONIDINE 0.1MG TABLET PO PRN (06:11)
[2021-11-24] MEDS: INSULIN LISPRO 100 UNITS/ML SUBCUT SCH ×3 (06:30→17:35)
[2021-11-24] MEDS: BLOOD SUGAR DIAGNOSTIC STRIP TEST SCH ×3 (06:30→17:34)
[2021-11-24 08:00] VITALS: BP 157/72
[2021-11-24] MEDS: ASPIRIN 81MG TABLET PO SCH (09:17)
[2021-11-24] MEDS: CARVEDILOL 3.125 MG TABLET PO SCH (09:17)
[2021-11-24] MEDS: LOSARTAN POTASSIUM 50 MG TABLET PO SCH (09:17)
[2021-11-24 12:00] VITALS: BP 114/78
[2021-11-24 14:03] VITALS: BP 114/78
== END 2021-11-24 18:20 | disposition home or self-care (01) | DRG 48 ==
LOC: ER 15:59 → MICUSO 18:22 → 8WST 11-21 10:28
PROVIDERS: ADMIT Internal Medicine; ATTEND Internal Medicine
PROC: 4A10X4Z Monitoring of Central Nervous Electrical Activity, External Approach (ICD-10-PCS; principal; 2021-11-24)
DX: G90.8 Other disorders of autonomic nervous system (principal); I42.9 Cardiomyopathy, unspecified; E11.65 Type 2 diabetes mellitus with hyperglycemia; I10 Essential (primary) hypertension; F12.90 Cannabis use, unspecified, uncomplicated; E78.00 Pure hypercholesterolemia, unspecified; E78.5 Hyperlipidemia, unspecified; Z91.81 History of falling; Z79.84 Long term (current) use of oral hypoglycemic drugs; Z79.899 Other long term (current) drug therapy; Z87.891 Personal history of nicotine dependence; Z60.2 Problems related to living alone; Z91.14 Patient's other noncompliance with medication regimen; Z86.73 Personal history of transient ischemic attack (TIA), and cerebral infarction without residual deficits
CPT/HCPCS: 36415; 71045; 80048; 80053; 80061; 80305; 81003; 82550; 82553; 82607; 82962; 83036; 83880; 84439; 84443; 84484; 85025; 85379; 86850; 86900; 93005; 93306; 93970; 95816; 99285; C1893; J1650; J1815; J7030

== ENCOUNTER 2021-11-25 11:54 | Emergency (ER) | payer MEDICAID | END 2021-11-25 12:35 | disposition home or self-care (01) | LOC: ER 11:54 | DX: Z53.21 Procedure and treatment not carried out due to patient leaving prior to being seen by health care provider (principal) ==

== ENCOUNTER 2022-06-02 10:45 | Inpatient (IN) | payer MEDICAID ==
[~2022-06-02] VITALS: Ht 172.7 cm; Wt 68.0 kg
[2022-06-02] MEDS ORDERED: SODIUM CHLORIDE 0.9% 1,000 ML IV ONE (11:15)
[2022-06-02] MEDS ORDERED: ACETAMINOPHEN 325MG TABLET PO ONE (12:15)
[2022-06-02] MEDS ORDERED: AMLODIPINE 5MG TABLET PO ONE (12:15)
[2022-06-02 12:44] LABS: BASOPHILS % 0.6 % (0.0-2.0); EOSINOPHILS % 0.4 % (0.0-5.0); HEMATOCRIT. 44.2 % (42.0-52.0); HEMOGLOBIN. 14.3 g/dL (14.0-18.0); LYMPHOCYTES % 13.7 % (20.0-50.0); MEAN CORPUSCULAR HEMOGLOBIN 28.7 pg (28.0-32.0); MEAN CORPUSCULAR VOLUME 88.6 fL (80.0-94.0); MONOCYTES % 5.9 % (2.0-8.0); NEUTROPHILS % 79.4 % (40.0-76.0); PLATELET 190 x1000/uL (130-400); RED BLOOD CELL COUNT 4.99 mill/uL (4.7-6.1); RED CELL DISTRIBUTION WIDTH 16.6 % (11.6-14.6)
[2022-06-02 12:47] LABS: CHLORIDE 101 mEq/L (98-107)
[2022-06-02] MEDS ORDERED: CEFTRIAXONE 1 G PREMIX 50 ML IV ONE (13:45)
[2022-06-02 14:17] LABS: CLARITY URINE CLEAR (CLEAR); COLOR URINE YELLOW (YELLOW); KETONES URINE 1+ (NEGATIVE); LEUKOCYTE ESTERASE URINE NEGATIVE (NEGATIVE); NITRITE URINE NEGATIVE (NEGATIVE); OCCULT BLOOD URINE TRACE (NEGATIVE); PROTEIN URINE 3+ (NEGATIVE); SPECIFIC GRAVITY URINE 1.019 (1.005-1.030); UROBILINOGEN URINE 0.2 E.U./dL (0.2-1.0)
[2022-06-02] MEDS ORDERED: ACETAMINOPHEN 325MG TABLET PO PRN (15:15)
[2022-06-02] MEDS ORDERED: DEXTROSE 50% WATER 50ML SYRINGE IV PRN (15:45)
[2022-06-02 16:29] LABS: CREATINE KINASE 145 IU/L (39-308)
[2022-06-02 17:45] VITALS: BP 168/90
[2022-06-02] MEDS: BLOOD SUGAR DIAGNOSTIC STRIP TEST SCH ×3 (17:54→21:00)
[2022-06-02] MEDS: INSULIN LISPRO 100 UNITS/ML SUBCUT SCH ×2 (17:55→21:00)
[2022-06-02] MEDS ORDERED: SODIUM CHLORIDE 0.9% 1,000 ML IV SCH (18:00)
[2022-06-02 18:33] VITALS: BP 168/90
[2022-06-02 20:00] VITALS: BP 160/80
[2022-06-02] MEDS: ACETAMINOPHEN 325MG TABLET PO PRN (21:23)
[2022-06-02] MEDS: FAMOTIDINE 20MG/2ML VIAL IV SCH (21:23)
[2022-06-03 00:05] VITALS: BP 164/68
[2022-06-03 04:00] VITALS: BP 112/56
[2022-06-03] MEDS: BLOOD SUGAR DIAGNOSTIC STRIP TEST SCH ×4 (05:15→21:58)
[2022-06-03] MEDS: INSULIN LISPRO 100 UNITS/ML SUBCUT SCH ×4 (05:16→22:28)
[2022-06-03 08:00] VITALS: BP 172/86
[2022-06-03] MEDS: CLOPIDOGREL 75MG TABLET PO SCH (08:50)
[2022-06-03] MEDS: FAMOTIDINE 20MG/2ML VIAL IV SCH ×2 (09:00→21:51)
[2022-06-03] MEDS: LISINOPRIL 10MG TABLET PO SCH (09:12)
[2022-06-03] MEDS: AMLODIPINE 5MG TABLET PO SCH (09:12)
[2022-06-03 09:30] LABS: HEMATOCRIT 42.8 % (42.0-52.0); HEMOGLOBIN 13.9 g/dL (14.0-18.0); MEAN CORPUSCULAR HEMOGLOBIN 28.9 pg (28.0-32.0); MEAN CORPUSCULAR VOLUME 89.2 fL (80.0-94.0); PLATELET 183 x1000/uL (130-400); RED CELL DISTRIBUTION WIDTH 16.7 % (11.6-14.6)
[2022-06-03 10:34] LABS: CHLORIDE 101 mEq/L (98-107)
[2022-06-03 10:53] LABS: T4 FREE 1.12 ng/dL (0.76-1.46)
[2022-06-03 12:00] VITALS: BP 113/54
[2022-06-03 16:00] VITALS: BP 122/63
[2022-06-03 20:00] VITALS: BP 141/66
[2022-06-03] MEDS: CARVEDILOL 6.25 MG TABLET PO SCH (21:53)
[2022-06-04] VITALS: BP 107/73
[2022-06-04 04:00] VITALS: BP 159/78
[2022-06-04] MEDS: BLOOD SUGAR DIAGNOSTIC STRIP TEST SCH ×4 (07:40→20:32)
[2022-06-04 08:00] VITALS: BP 145/92
[2022-06-04] MEDS: INSULIN LISPRO 100 UNITS/ML SUBCUT SCH ×4 (08:10→20:32)
[2022-06-04 08:50] LABS: HEMATOCRIT 42.6 % (42.0-52.0); HEMOGLOBIN 13.5 g/dL (14.0-18.0); MEAN CORPUSCULAR HEMOGLOBIN 28.3 pg (28.0-32.0); MEAN CORPUSCULAR VOLUME 89.6 fL (80.0-94.0); PLATELET 168 x1000/uL (130-400); RED BLOOD CELL COUNT 4.75 mill/uL (4.7-6.1); RED CELL DISTRIBUTION WIDTH 17.1 % (11.6-14.6)
[2022-06-04 09:00] LABS: CHLORIDE 103 mEq/L (98-107)
[2022-06-04] MEDS: FAMOTIDINE 20MG/2ML VIAL IV SCH ×2 (09:00→20:31)
[2022-06-04] MEDS: AMLODIPINE 5MG TABLET PO SCH (09:01)
[2022-06-04] MEDS: LISINOPRIL 10MG TABLET PO SCH (09:01)
[2022-06-04] MEDS: CLOPIDOGREL 75MG TABLET PO SCH (09:01)
[2022-06-04] MEDS: CARVEDILOL 6.25 MG TABLET PO SCH ×2 (09:01→20:31)
[2022-06-04 12:00] VITALS: BP 106/55
[2022-06-04 16:00] VITALS: BP 133/62
[2022-06-04 16:33] LABS: *AMPHETAMINES SCREEN URINE NEGATIVE (NEGATIVE); *BARBITURATES SCREEN URINE NEGATIVE (NEGATIVE); *BENZODIAZEPINES SCREEN URINE NEGATIVE (NEGATIVE); *COCAINE SCREEN URINE NEGATIVE (NEGATIVE); CANNABINOID URINE SCREEN NEGATIVE (NEGATIVE); METHADONE URINE SCREEN NEGATIVE (NEGATIVE); OPIATES URINE SCREEN NEGATIVE (NEGATIVE); PHENCYCLIDINE URINE SCREEN NEGATIVE (NEGATIVE)
[2022-06-04 20:00] VITALS: BP 117/72
[2022-06-05] VITALS: BP 118/77
[2022-06-05 04:00] VITALS: BP 123/71
[2022-06-05] MEDS: INSULIN LISPRO 100 UNITS/ML SUBCUT SCH ×2 (05:42→20:39)
[2022-06-05] MEDS: BLOOD SUGAR DIAGNOSTIC STRIP TEST SCH ×2 (05:42→20:38)
[2022-06-05 08:00] VITALS: BP 136/79
[2022-06-05] MEDS: ACETAMINOPHEN 325MG TABLET PO PRN ×2 (08:55→11:18)
[2022-06-05] MEDS: CLOPIDOGREL 75MG TABLET PO SCH (09:25)
[2022-06-05] MEDS: FAMOTIDINE 20MG/2ML VIAL IV SCH (09:26)
[2022-06-05] MEDS: AMLODIPINE 5MG TABLET PO SCH (09:26)
[2022-06-05] MEDS: LISINOPRIL 10MG TABLET PO SCH (09:27)
[2022-06-05] MEDS: CARVEDILOL 6.25 MG TABLET PO SCH ×2 (09:28→20:38)
[2022-06-05 12:00] VITALS: BP 101/55
[2022-06-05 13:38] LABS: VITAMIN B12 SERUM 422 pg/mL (211-911)
[2022-06-05 16:00] VITALS: BP 98/64
[2022-06-05 20:00] VITALS: BP 152/51
[2022-06-05] MEDS: FAMOTIDINE 20MG TABLET PO SCH (20:38)
[2022-06-06 00:25] VITALS: BP 129/48
[2022-06-06 04:00] VITALS: BP 121/64
[2022-06-06] MEDS: INSULIN LISPRO 100 UNITS/ML SUBCUT SCH ×3 (05:41→18:08)
[2022-06-06] MEDS: ACETAMINOPHEN 325MG TABLET PO PRN ×2 (05:42→10:09)
[2022-06-06] MEDS: BLOOD SUGAR DIAGNOSTIC STRIP TEST SCH (05:42)
[2022-06-06 07:18] LABS: HEMATOCRIT 42.5 % (42.0-52.0); HEMOGLOBIN 13.6 g/dL (14.0-18.0); MEAN CORPUSCULAR HEMOGLOBIN 28.4 pg (28.0-32.0); MEAN CORPUSCULAR VOLUME 88.7 fL (80.0-94.0); PLATELET 195 x1000/uL (130-400); RED BLOOD CELL COUNT 4.79 mill/uL (4.7-6.1); RED CELL DISTRIBUTION WIDTH 16.8 % (11.6-14.6)
[2022-06-06 08:00] VITALS: BP 159/79
[2022-06-06 09:17] LABS: CHLORIDE 104 mEq/L (98-107)
[2022-06-06] MEDS: LISINOPRIL 10MG TABLET PO SCH (09:43)
[2022-06-06] MEDS: CARVEDILOL 6.25 MG TABLET PO SCH (09:43)
[2022-06-06] MEDS: AMLODIPINE 5MG TABLET PO SCH (09:44)
[2022-06-06] MEDS: CLOPIDOGREL 75MG TABLET PO SCH (09:44)
[2022-06-06] MEDS: FAMOTIDINE 20MG TABLET PO SCH (09:44)
[2022-06-06] MEDS ORDERED: TOPUD PO (16:03)
[2022-06-06 19:46] VITALS: BP 139/79
== END 2022-06-06 20:30 | disposition home or self-care (01) | DRG 422 ==
LOC: ER 10:45 → EDBEDREQ 11:12 → 7WST 13:42 → EDBEDREQ 13:51 → EDBEDREQTM 13:51 → EDBEDREQSVC 13:51
PROVIDERS: ADMIT Internal Medicine; ATTEND Internal Medicine
DX: E86.0 Dehydration (principal); G93.41 Metabolic encephalopathy; I67.4 Hypertensive encephalopathy; F03.90 Unspecified dementia, unspecified severity, without behavioral disturbance, psychotic disturbance, mood disturbance, and anxiety; I50.20 Unspecified systolic (congestive) heart failure; I11.0 Hypertensive heart disease with heart failure; I16.0 Hypertensive urgency; E78.00 Pure hypercholesterolemia, unspecified; I37.1 Nonrheumatic pulmonary valve insufficiency; E11.9 Type 2 diabetes mellitus without complications; T40.605A Adverse effect of unspecified narcotics, initial encounter; Y92.89 Other specified places as the place of occurrence of the external cause; Z79.899 Other long term (current) drug therapy; Z95.1 Presence of aortocoronary bypass graft; Z79.02 Long term (current) use of antithrombotics/antiplatelets; I25.2 Old myocardial infarction
CPT/HCPCS: 36415; 71045; 80053; 80305; 81003; 82550; 82607; 82652; 82962; 83036; 83880; 84100; 84439; 84443; 84484; 85025; 85027; 93005; 97162; 97166; 99285; J0696; J1815; J3490; J7030

== ENCOUNTER 2022-07-14 19:33 | Inpatient (IN) | payer MEDICAID ==
[~2022-07-14] VITALS: Ht 180.3 cm; Wt 66.9 kg
[~2022-07-14 19:33] MED LIST changes: -HYDR-4001 MT; -SULF1TAB47 MT; +TOPUD PO
[2022-07-14] MEDS ORDERED: SODIUM CHLORIDE 0.9% 1,000 ML IV ONE ×2 (20:15→22:15)
[2022-07-14 21:10] LABS: BASOPHILS % 0.6 % (0.0-2.0); EOSINOPHILS % 0.5 % (0.0-5.0); HEMATOCRIT. 44.2 % (42.0-52.0); HEMOGLOBIN. 13.8 g/dL (14.0-18.0); LYMPHOCYTES % 21.4 % (20.0-50.0); MEAN CORPUSCULAR HEMOGLOBIN 27.9 pg (28.0-32.0); MEAN CORPUSCULAR VOLUME 89.5 fL (80.0-94.0); MEAN PLATELET VOLUME 8.7 fl (7.4-10.4); MONOCYTES % 9.8 % (2.0-8.0); NEUTROPHILS % 67.7 % (40.0-76.0); PLATELET 202 x1000/uL (130-400); RED BLOOD CELL COUNT 4.94 mill/uL (4.7-6.1); RED CELL DISTRIBUTION WIDTH 18.5 % (11.6-14.6)
[2022-07-14 21:18] LABS: CHLORIDE 105 mEq/L (98-107)
[2022-07-14 21:27] LABS: CREATINE KINASE 749 IU/L (39-308)
[2022-07-14] MEDS ORDERED: ASPIRIN 81MG TABLET PO ONE (22:15)
[2022-07-15 02:00] VITALS: BP 138/90
[2022-07-15] MEDS ORDERED: ACETAMINOPHEN 325MG TABLET PO PRN (02:45)
[2022-07-15 04:00] VITALS: BP 150/80
[2022-07-15] MEDS ORDERED: HYDROCODONE/ACETAMINOPHEN 10/325MG TABLET PO PRN (04:15)
[2022-07-15 08:00] VITALS: BP 162/72
[2022-07-15] MEDS ORDERED: DEXTROSE 50% WATER 50ML SYRINGE IV PRN (08:15)
[2022-07-15] MEDS ORDERED: NALOXONE HCL 0.4MG/ML VIAL IV PRN (08:45)
[2022-07-15] MEDS ORDERED: SODIUM CHLORIDE 0.9% 100 ML IV SCH (09:00)
[2022-07-15] MEDS: CLOPIDOGREL 75MG TABLET PO SCH (10:12)
[2022-07-15] MEDS: LISINOPRIL 10MG TABLET PO SCH (10:22)
[2022-07-15] MEDS: AMLODIPINE 5MG TABLET PO SCH (10:22)
[2022-07-15] MEDS: CARVEDILOL 6.25 MG TABLET PO SCH ×2 (10:23→18:30)
[2022-07-15] MEDS: SODIUM CHLORIDE 0.9% 1,000 ML IV SCH ×2 (10:23→20:00)
[2022-07-15] MEDS: METFORMIN HCL 500MG TABLET PO SCH ×2 (10:25→18:31)
[2022-07-15] MEDS: BLOOD SUGAR DIAGNOSTIC STRIP TEST SCH ×3 (11:40→20:44)
[2022-07-15 12:00] VITALS: BP 157/65
[2022-07-15] MEDS: INSULIN LISPRO 100 UNITS/ML SUBCUT SCH ×3 (14:33→20:44)
[2022-07-15 16:00] VITALS: BP 119/65
[2022-07-15 20:00] VITALS: BP 111/63
[2022-07-15 23:40] LABS: CLARITY URINE CLEAR (CLEAR); COLOR URINE YELLOW (YELLOW); KETONES URINE NEGATIVE (NEGATIVE); LEUKOCYTE ESTERASE URINE NEGATIVE (NEGATIVE); NITRITE URINE NEGATIVE (NEGATIVE); OCCULT BLOOD URINE NEGATIVE (NEGATIVE); PROTEIN URINE 1+ (NEGATIVE); SPECIFIC GRAVITY URINE 1.018 (1.005-1.030)
[2022-07-16] VITALS: BP 125/71
[2022-07-16 04:00] VITALS: BP 108/81
[2022-07-16] MEDS: SODIUM CHLORIDE 0.9% 1,000 ML IV SCH (05:08)
[2022-07-16] MEDS: BLOOD SUGAR DIAGNOSTIC STRIP TEST SCH ×4 (05:38→21:00)
[2022-07-16] MEDS: INSULIN LISPRO 100 UNITS/ML SUBCUT SCH ×4 (07:12→21:00)
[2022-07-16 08:00] VITALS: BP 140/59
[2022-07-16] MEDS: AMLODIPINE 5MG TABLET PO SCH (08:47)
[2022-07-16] MEDS: METFORMIN HCL 500MG TABLET PO SCH ×3 (08:47→17:28)
[2022-07-16] MEDS: CLOPIDOGREL 75MG TABLET PO SCH (08:47)
[2022-07-16] MEDS: LISINOPRIL 10MG TABLET PO SCH (08:47)
[2022-07-16] MEDS: CARVEDILOL 6.25 MG TABLET PO SCH ×2 (08:48→16:56)
[2022-07-16] MEDS: QUETIAPINE FUMARATE 50MG TABLET PO SCH (10:49)
[2022-07-16 12:00] VITALS: BP 149/72
[2022-07-16 16:00] VITALS: BP 103/70
[2022-07-16 20:07] VITALS: BP 141/67
[2022-07-17 00:14] VITALS: BP 103/48
[2022-07-17 04:02] VITALS: BP 138/80
[2022-07-17] MEDS: BLOOD SUGAR DIAGNOSTIC STRIP TEST SCH ×4 (05:46→21:00)
[2022-07-17] MEDS: INSULIN LISPRO 100 UNITS/ML SUBCUT SCH ×4 (06:23→21:00)
[2022-07-17 08:16] VITALS: BP 167/84
[2022-07-17] MEDS: LISINOPRIL 10MG TABLET PO SCH (09:24)
[2022-07-17] MEDS: CARVEDILOL 6.25 MG TABLET PO SCH ×2 (09:25→17:00)
[2022-07-17] MEDS: METFORMIN HCL 500MG TABLET PO SCH ×2 (09:25→17:00)
[2022-07-17] MEDS: CLOPIDOGREL 75MG TABLET PO SCH (09:25)
[2022-07-17] MEDS: QUETIAPINE FUMARATE 50MG TABLET PO SCH (09:25)
[2022-07-17] MEDS: AMLODIPINE 5MG TABLET PO SCH (09:25)
[2022-07-17 12:00] VITALS: BP 139/65
[2022-07-17] MEDS: DOCUSATE SODIUM 250MG CAPSULE PO SCH (12:42)
[2022-07-17 16:00] VITALS: BP 119/58
[2022-07-17 20:00] VITALS: BP 152/81
[2022-07-18] VITALS: BP 121/71
[2022-07-18 04:00] VITALS: BP 102/58
[2022-07-18] MEDS: INSULIN LISPRO 100 UNITS/ML SUBCUT SCH ×4 (06:52→21:00)
[2022-07-18] MEDS: BLOOD SUGAR DIAGNOSTIC STRIP TEST SCH ×4 (06:52→21:00)
[2022-07-18 08:00] VITALS: BP 143/76
[2022-07-18] MEDS: AMLODIPINE 5MG TABLET PO SCH (08:55)
[2022-07-18] MEDS: CLOPIDOGREL 75MG TABLET PO SCH (08:55)
[2022-07-18] MEDS: QUETIAPINE FUMARATE 50MG TABLET PO SCH (08:55)
[2022-07-18] MEDS: METFORMIN HCL 500MG TABLET PO SCH ×2 (08:55→17:00)
[2022-07-18] MEDS: CARVEDILOL 6.25 MG TABLET PO SCH ×2 (08:57→17:00)
[2022-07-18] MEDS: LISINOPRIL 10MG TABLET PO SCH (08:57)
[2022-07-18] MEDS: DOCUSATE SODIUM 250MG CAPSULE PO SCH (08:57)
[2022-07-18 12:00] VITALS: BP 117/78
[2022-07-18 16:00] VITALS: BP 110/40
[2022-07-18 20:00] VITALS: BP 106/73
[2022-07-19 04:00] VITALS: BP 147/69
[2022-07-19] MEDS: INSULIN LISPRO 100 UNITS/ML SUBCUT SCH ×4 (06:04→21:00)
[2022-07-19] MEDS: BLOOD SUGAR DIAGNOSTIC STRIP TEST SCH ×4 (06:05→21:39)
[2022-07-19 08:00] VITALS: BP 127/64
[2022-07-19] MEDS: METFORMIN HCL 500MG TABLET PO SCH ×2 (08:58→17:00)
[2022-07-19] MEDS: QUETIAPINE FUMARATE 50MG TABLET PO SCH (08:58)
[2022-07-19] MEDS: DOCUSATE SODIUM 250MG CAPSULE PO SCH (08:58)
[2022-07-19] MEDS: CARVEDILOL 6.25 MG TABLET PO SCH ×2 (08:59→17:00)
[2022-07-19] MEDS: CLOPIDOGREL 75MG TABLET PO SCH (08:59)
[2022-07-19] MEDS: LISINOPRIL 10MG TABLET PO SCH (08:59)
[2022-07-19] MEDS: AMLODIPINE 5MG TABLET PO SCH (08:59)
[2022-07-19 11:51] VITALS: BP 104/41
[2022-07-19 20:00] VITALS: BP 135/68
[2022-07-20] VITALS: BP 129/69
[2022-07-20 04:00] VITALS: BP 113/83
[2022-07-20] MEDS: BLOOD SUGAR DIAGNOSTIC STRIP TEST SCH ×4 (05:21→21:47)
[2022-07-20] MEDS: INSULIN LISPRO 100 UNITS/ML SUBCUT SCH ×5 (05:22→22:34)
[2022-07-20 08:00] VITALS: BP 166/82
[2022-07-20] MEDS: QUETIAPINE FUMARATE 50MG TABLET PO SCH (08:54)
[2022-07-20] MEDS: DOCUSATE SODIUM 250MG CAPSULE PO SCH (08:54)
[2022-07-20] MEDS: CLOPIDOGREL 75MG TABLET PO SCH (08:55)
[2022-07-20] MEDS: AMLODIPINE 5MG TABLET PO SCH (08:57)
[2022-07-20] MEDS: LISINOPRIL 10MG TABLET PO SCH (08:57)
[2022-07-20] MEDS: CARVEDILOL 6.25 MG TABLET PO SCH ×2 (08:57→17:00)
[2022-07-20] MEDS: METFORMIN HCL 500MG TABLET PO SCH ×2 (09:00→17:00)
[2022-07-20 12:00] VITALS: BP 121/50
[2022-07-20 16:00] VITALS: BP 122/62
[2022-07-20] MEDS ORDERED: NALOXONE HCL 0.4MG/ML VIAL IV PRN (16:45)
[2022-07-20 20:00] VITALS: BP 118/47
[2022-07-21] VITALS: BP 152/72
[2022-07-21 04:00] VITALS: BP 121/61
[2022-07-21] MEDS: BLOOD SUGAR DIAGNOSTIC STRIP TEST SCH ×4 (06:57→21:00)
[2022-07-21] MEDS: INSULIN LISPRO 100 UNITS/ML SUBCUT SCH ×4 (07:03→21:26)
[2022-07-21 08:17] VITALS: BP 108/69
[2022-07-21] MEDS: CARVEDILOL 6.25 MG TABLET PO SCH ×2 (08:18→17:14)
[2022-07-21] MEDS: AMLODIPINE 5MG TABLET PO SCH (08:18)
[2022-07-21] MEDS: LISINOPRIL 10MG TABLET PO SCH (08:18)
[2022-07-21] MEDS: CLOPIDOGREL 75MG TABLET PO SCH (08:54)
[2022-07-21] MEDS: METFORMIN HCL 500MG TABLET PO SCH ×2 (08:54→17:14)
[2022-07-21] MEDS: QUETIAPINE FUMARATE 50MG TABLET PO SCH (08:55)
[2022-07-21] MEDS: DOCUSATE SODIUM 250MG CAPSULE PO SCH (08:55)
[2022-07-21 12:00] VITALS: BP 102/45
[2022-07-21 16:00] VITALS: BP 122/54
[2022-07-21 20:00] VITALS: BP 120/49
[2022-07-21] MEDS: INSULIN GLARGINE 100 UNITS/ML SUBCUT SCH (21:25)
[2022-07-22] VITALS (7 sets, daily range): BP systolic 128–151; BP diastolic 48–75
[2022-07-22] MEDS: INSULIN LISPRO 100 UNITS/ML SUBCUT SCH ×4 (06:35→21:00)
[2022-07-22] MEDS: BLOOD SUGAR DIAGNOSTIC STRIP TEST SCH ×4 (06:35→21:00)
[2022-07-22] MEDS: CLOPIDOGREL 75MG TABLET PO SCH (09:56)
[2022-07-22] MEDS: DOCUSATE SODIUM 250MG CAPSULE PO SCH (09:57)
[2022-07-22] MEDS: QUETIAPINE FUMARATE 50MG TABLET PO SCH (09:57)
[2022-07-22] MEDS: CARVEDILOL 6.25 MG TABLET PO SCH ×2 (09:57→17:00)
[2022-07-22] MEDS: AMLODIPINE 5MG TABLET PO SCH (09:58)
[2022-07-22] MEDS: METFORMIN HCL 500MG TABLET PO SCH ×2 (09:58→17:00)
[2022-07-22] MEDS: LISINOPRIL 10MG TABLET PO SCH (09:58)
[2022-07-22] MEDS: INSULIN GLARGINE 100 UNITS/ML SUBCUT SCH ×2 (10:01→21:38)
[2022-07-23] VITALS: BP 133/61
[2022-07-23 04:00] VITALS: BP 143/58
[2022-07-23] MEDS: INSULIN LISPRO 100 UNITS/ML SUBCUT SCH ×4 (06:13→21:00)
[2022-07-23] MEDS: BLOOD SUGAR DIAGNOSTIC STRIP TEST SCH ×4 (06:13→21:48)
[2022-07-23 07:54] VITALS: BP 133/60
[2022-07-23] MEDS: CARVEDILOL 6.25 MG TABLET PO SCH ×2 (09:29→16:53)
[2022-07-23] MEDS: METFORMIN HCL 500MG TABLET PO SCH ×3 (09:29→17:13)
[2022-07-23] MEDS: QUETIAPINE FUMARATE 50MG TABLET PO SCH (09:29)
[2022-07-23] MEDS: LISINOPRIL 10MG TABLET PO SCH (09:29)
[2022-07-23] MEDS: DOCUSATE SODIUM 250MG CAPSULE PO SCH (09:29)
[2022-07-23] MEDS: AMLODIPINE 5MG TABLET PO SCH (09:30)
[2022-07-23] MEDS: CLOPIDOGREL 75MG TABLET PO SCH (09:30)
[2022-07-23] MEDS: INSULIN GLARGINE 100 UNITS/ML SUBCUT SCH ×2 (09:31→21:49)
[2022-07-23 12:00] VITALS: BP 113/58
[2022-07-23 16:00] VITALS: BP 105/47
[2022-07-23 20:00] VITALS: BP 136/65
[2022-07-24] VITALS (7 sets, daily range): BP systolic 109–143; BP diastolic 56–74
[2022-07-24] MEDS: BLOOD SUGAR DIAGNOSTIC STRIP TEST SCH ×3 (06:40→16:58)
[2022-07-24] MEDS: INSULIN LISPRO 100 UNITS/ML SUBCUT SCH ×3 (07:10→17:39)
[2022-07-24] MEDS: LISINOPRIL 10MG TABLET PO SCH (09:00)
[2022-07-24] MEDS: METFORMIN HCL 500MG TABLET PO SCH ×2 (09:00→17:37)
[2022-07-24] MEDS: AMLODIPINE 5MG TABLET PO SCH (09:00)
[2022-07-24] MEDS: DOCUSATE SODIUM 250MG CAPSULE PO SCH (09:00)
[2022-07-24] MEDS: CARVEDILOL 6.25 MG TABLET PO SCH ×2 (09:00→17:00)
[2022-07-24] MEDS: CLOPIDOGREL 75MG TABLET PO SCH (09:00)
[2022-07-24] MEDS: QUETIAPINE FUMARATE 50MG TABLET PO SCH (09:00)
[2022-07-24] MEDS: INSULIN GLARGINE 100 UNITS/ML SUBCUT SCH (10:00)
== END 2022-07-24 18:53 | disposition home or self-care (01) | DRG 351 ==
LOC: ER 19:33 → EDBEDREQTM 22:21 → EDBEDREQ 22:21 → MICUSO 23:03 → EDBEDREQTM 23:06 → EDBEDREQ 23:06 → 7EST 07-15 04:15
PROVIDERS: ADMIT Internal Medicine; ATTEND Internal Medicine
DX: M62.82 Rhabdomyolysis (principal); E11.9 Type 2 diabetes mellitus without complications; M48.061 Spinal stenosis, lumbar region without neurogenic claudication; F33.0 Major depressive disorder, recurrent, mild; F41.9 Anxiety disorder, unspecified; I10 Essential (primary) hypertension; W20.8XXA Other cause of strike by thrown, projected or falling object, initial encounter; Y93.89 Activity, other specified; Y92.89 Other specified places as the place of occurrence of the external cause; Y99.8 Other external cause status
CPT/HCPCS: 36415; 72131; 73521; 80053; 81003; 82550; 82962; 83036; 84484; 85025; 93005; 93970; 97116; 97162; 97166; 99285; C1893; J1815; J7030

== ENCOUNTER 2022-08-30 05:47 | Inpatient (IN) | payer MEDICAID ==
[~2022-08-30] VITALS: Ht 167.6 cm; Wt 69.9 kg
[2022-08-30 06:57] LABS: BASOPHILS % 0.8 % (0.0-2.0); EOSINOPHILS % 2.5 % (0.0-5.0); HEMATOCRIT. 31.7 % (42.0-52.0); HEMOGLOBIN. 10.1 g/dL (14.0-18.0); LYMPHOCYTES % 29.7 % (20.0-50.0); MEAN CORPUSCULAR HEMOGLOBIN 28.2 pg (28.0-32.0); MEAN CORPUSCULAR VOLUME 88.9 fL (80.0-94.0); MEAN PLATELET VOLUME 8.8 fl (7.4-10.4); MONOCYTES % 8.1 % (2.0-8.0); NEUTROPHILS % 58.9 % (40.0-76.0); PLATELET 163 x1000/uL (130-400); RED BLOOD CELL COUNT 3.57 mill/uL (4.7-6.1); RED CELL DISTRIBUTION WIDTH 17.5 % (11.6-14.6)
[2022-08-30 06:58] LABS: PROTHROMBIN TIME 10.5 sec (9.6-11.0)
[2022-08-30 07:01] LABS: CHLORIDE 107 mEq/L (98-107)
[2022-08-30] MEDS ORDERED: HYDRALAZINE 20MG/ML VIAL IV PRN (10:00)
[2022-08-30] MEDS ORDERED: ONDANSETRON HCL 4MG/2ML INJ IV PRN (10:30)
[2022-08-30] MEDS ORDERED: DEXTROSE 50% WATER 50ML SYRINGE IV PRN (10:30)
[2022-08-30] MEDS: AMLODIPINE 10MG TABLET PO SCH (11:22)
[2022-08-30] MEDS: ACETAMINOPHEN 325MG TABLET PO PRN (11:23)
[2022-08-30] MEDS: BLOOD SUGAR DIAGNOSTIC STRIP TEST SCH ×3 (12:43→20:38)
[2022-08-30] MEDS: INSULIN LISPRO 100 UNITS/ML SUBCUT SCH ×3 (13:43→20:39)
[2022-08-30] MEDS ORDERED: LORAZEPAM 2MG/ML CPJ IV PRN (15:00)
[2022-08-30] MEDS: PANTOPRAZOLE SODIUM 40 MG/VIAL IV SCH (18:52)
[2022-08-30 18:57] LABS: TOTAL IRON BINDING CAPACITY 429 ug/dL (250-450)
[2022-08-30 19:30] VITALS: BP 116/65
[2022-08-30 20:00] VITALS: BP 116/65
[2022-08-30 20:45] LABS: FOLIC ACID (FOLATE) SERUM 13.9 ng/mL (>5.38)
[2022-08-31] VITALS: BP 128/62
[2022-08-31 04:00] VITALS: BP 162/75
[2022-08-31] MEDS: BLOOD SUGAR DIAGNOSTIC STRIP TEST SCH ×3 (07:40→20:55)
[2022-08-31 07:46] LABS: BASOPHILS % 0.6 % (0.0-2.0); EOSINOPHILS % 1.5 % (0.0-5.0); HEMATOCRIT. 31.3 % (42.0-52.0); HEMOGLOBIN. 10.2 g/dL (14.0-18.0); LYMPHOCYTES % 26.9 % (20.0-50.0); MEAN CORPUSCULAR HEMOGLOBIN 28.6 pg (28.0-32.0); MEAN CORPUSCULAR VOLUME 87.9 fL (80.0-94.0); MEAN PLATELET VOLUME 8.9 fl (7.4-10.4); MONOCYTES % 7.9 % (2.0-8.0); NEUTROPHILS % 63.1 % (40.0-76.0); PLATELET 183 x1000/uL (130-400); RED BLOOD CELL COUNT 3.56 mill/uL (4.7-6.1); RED CELL DISTRIBUTION WIDTH 17.4 % (11.6-14.6)
[2022-08-31 07:50] LABS: PROTHROMBIN TIME 10.9 sec (9.6-11.0)
[2022-08-31 07:55] LABS: CHLORIDE 105 mEq/L (98-107)
[2022-08-31 08:00] VITALS: BP 138/72
[2022-08-31] MEDS: INSULIN LISPRO 100 UNITS/ML SUBCUT SCH ×3 (08:10→20:55)
[2022-08-31] MEDS: PANTOPRAZOLE SODIUM 40 MG/VIAL IV SCH ×2 (08:28→16:28)
[2022-08-31] MEDS: AMLODIPINE 10MG TABLET PO SCH (08:30)
[2022-08-31 12:00] VITALS: BP 123/57
[2022-08-31] MEDS: DEXT 5%/0.45% NACL 1000ML 1,000 ML IV SCH (14:00)
[2022-08-31 16:00] VITALS: BP 148/57
[2022-08-31] MEDS ORDERED: GABA-532 MT (19:32)
[2022-08-31] MEDS ORDERED: POLY17PO19 PO (19:32)
[2022-08-31] MEDS ORDERED: ATOR40TA70 MT (19:32)
[2022-08-31] MEDS ORDERED: DICL100G31 TP (19:32)
[2022-08-31] MEDS ORDERED: CLOT24CR TP (19:32)
[2022-08-31] MEDS ORDERED: CYAN-50 MT (19:32)
[2022-08-31] MEDS ORDERED: MAGN500C4 MT (19:32)
[2022-08-31 20:00] VITALS: BP 145/47
[2022-09-01] VITALS: BP 130/49
[2022-09-01 04:00] VITALS: BP 142/46
[2022-09-01] MEDS: BLOOD SUGAR DIAGNOSTIC STRIP TEST SCH ×4 (05:30→20:29)
[2022-09-01 07:31] LABS: BASOPHILS % 0.6 % (0.0-2.0); MEAN PLATELET VOLUME 8.7 fl (7.4-10.4)
[2022-09-01 07:34] LABS: EOSINOPHILS % 2.2 % (0.0-5.0); HEMOGLOBIN. 9.9 g/dL (14.0-18.0); LYMPHOCYTES % 22.7 % (20.0-50.0); MEAN CORPUSCULAR HEMOGLOBIN 28.7 pg (28.0-32.0); MEAN CORPUSCULAR VOLUME 87.4 fL (80.0-94.0); MONOCYTES % 9.3 % (2.0-8.0); NEUTROPHILS % 65.2 % (40.0-76.0); PLATELET 193 x1000/uL (130-400); RED BLOOD CELL COUNT 3.43 mill/uL (4.7-6.1); RED CELL DISTRIBUTION WIDTH 17.2 % (11.6-14.6)
[2022-09-01 08:00] VITALS: BP 143/51
[2022-09-01] MEDS: AMLODIPINE 10MG TABLET PO SCH (09:24)
[2022-09-01] MEDS: PANTOPRAZOLE SODIUM 40 MG/VIAL IV SCH ×2 (09:25→16:28)
[2022-09-01] MEDS: DEXT 5%/0.45% NACL 1000ML 1,000 ML IV SCH (09:27)
[2022-09-01] MEDS: INSULIN LISPRO 100 UNITS/ML SUBCUT SCH ×4 (09:27→20:27)
[2022-09-01 12:00] VITALS: BP 166/65
[2022-09-01] MEDS ORDERED: ETOMIDATE 2MG/ML 10ML VIAL IV ONE (13:33)
[2022-09-01] MEDS ORDERED: LIDOCAINE HCL 1% 10 MG/ML 10ML VIAL ONE (13:33)
[2022-09-01 16:00] VITALS: BP 136/69
[2022-09-01] MEDS: ACETAMINOPHEN 325MG TABLET PO PRN (16:33)
[2022-09-01 20:00] VITALS: BP 132/54
[2022-09-01] MEDS: PANTOPRAZOLE 40MG DR TABLET PO SCH (22:30)
[2022-09-02] MEDS ORDERED: NALOXONE HCL 0.4MG/ML VIAL IV PRN (02:45)
[2022-09-02] MEDS ORDERED: HYDROCODONE/ACETAMINOPHEN 10/325MG TABLET PO PRN (02:45)
[2022-09-02 04:00] VITALS: BP 145/70
[2022-09-02] MEDS: BLOOD SUGAR DIAGNOSTIC STRIP TEST SCH (05:43)
[2022-09-02] MEDS ORDERED: IRON SUCROSE COMPLEX 100 MG/5 ML ML IV SCH (06:00)
[2022-09-02 08:00] VITALS: BP 145/73
[2022-09-02] MEDS ORDERED: OMEP40CA20 MT (08:09)
[2022-09-02] MEDS ORDERED: DOCUSATE SODIUM 250MG CAPSULE PO SCH (09:00)
[2022-09-02] MEDS: PANTOPRAZOLE 40MG DR TABLET PO SCH (09:05)
[2022-09-02] MEDS: AMLODIPINE 10MG TABLET PO SCH (09:27)
[2022-09-02] MEDS: INSULIN LISPRO 100 UNITS/ML SUBCUT SCH (09:29)
[2022-09-02 10:50] VITALS: BP 145/73
[2022-09-02 12:00] VITALS: BP 145/70
[2022-09-06] MEDS ORDERED: FERROUS SULFATE 325MG TABLET PO SCH (09:00)
== END 2022-09-02 12:25 | disposition home or self-care (01) | DRG 241 ==
LOC: ER 05:47 → 7WST 08:00 → EDBEDREQTM 08:02 → EDBEDREQ 08:02
PROVIDERS: ADMIT Internal Medicine; ATTEND Internal Medicine
PROC: 0DB68ZX Excision of Stomach, Via Natural or Artificial Opening Endoscopic, Diagnostic (ICD-10-PCS; principal; 2022-09-01)
DX: K29.71 Gastritis, unspecified, with bleeding (principal); E44.1 Mild protein-calorie malnutrition; K57.31 Diverticulosis of large intestine without perforation or abscess with bleeding; D62 Acute posthemorrhagic anemia; E78.00 Pure hypercholesterolemia, unspecified; E11.65 Type 2 diabetes mellitus with hyperglycemia; D50.9 Iron deficiency anemia, unspecified; I10 Essential (primary) hypertension; N20.0 Calculus of kidney; K59.00 Constipation, unspecified; Z68.24 Body mass index [BMI] 24.0-24.9, adult; M48.061 Spinal stenosis, lumbar region without neurogenic claudication; Z20.822 Contact with and (suspected) exposure to COVID-19; I70.0 Atherosclerosis of aorta; N40.0 Benign prostatic hyperplasia without lower urinary tract symptoms; Z79.02 Long term (current) use of antithrombotics/antiplatelets; Z95.1 Presence of aortocoronary bypass graft
CPT/HCPCS: 36415; 71045; 74176; 80048; 80053; 82607; 82728; 82746; 82962; 83540; 83550; 84484; 85025; 85044; 86850; 86900; 87426; 88305; 93005; 97162; 99285; C1893; C9113; J0360; J1815; J2060; J3490

== ENCOUNTER 2025-06-17 20:41 | Inpatient (IN) | payer MEDICAID ==
[~2025-06-17] VITALS: Ht 175.3 cm; Wt 69.4 kg
[~2025-06-17 20:41] MED LIST changes: -AMLO5TAB4 PO; +AMLO5TAB6 PO; +ATOR40TA70 MT; +CLOT24CR TP; +CYAN-50 MT; +DICL100G58 TP; +GABA-1180 MT; +MAGN500C4 MT; +METF-1150 PO; -METF-874 PO; +OMEP40CA20 MT; +POLY17PO19 PO
[2025-06-17 21:40] LABS: HEMATOCRIT. 44.7 % (42.0-52.0); HEMOGLOBIN. 13.6 g/dL (14.0-18.0); MEAN PLATELET VOLUME 9.9 fl (7.4-10.4); PLATELET 60 x1000/uL (130-400); RED BLOOD CELL COUNT 4.52 mill/uL (4.7-6.1); RED CELL DISTRIBUTION WIDTH 16.0 % (11.6-14.6)
[2025-06-17 21:52] LABS: CREATININE 1.4 mg/dL (0.6-1.3); UREA NITROGEN BLOOD 28 mg/dL (9-23)
[2025-06-17 21:54] LABS: ASPARTATE AMINOTRANSFERASE 71 IU/L (<34); BILIRUBIN DIRECT 0.3 mg/dL (<=3.0); BILIRUBIN TOTAL 0.6 mg/dL (0.1-1.0); PROTEIN TOTAL 6.2 g/dL (6.0-8.3)
[2025-06-17 22:07] LABS: LYMPHOCYTES % MANUAL 8.0 % (20.0-50.0); MONOCYTES % MANUAL 3.0 % (2.0-8.0); NEUTROPHILS % MANUAL 89.0 % (45.0-75.0); PLATELET ESTIMATE DECREASED
[2025-06-17 22:25] LABS: TROPONIN I HIGH SENSITIVITY 353 ng/L (3.0-53)
[2025-06-18 00:05] LABS: TROPONIN I HIGH SENSITIVITY 333 ng/L (3.0-53)
[2025-06-18] MEDS ORDERED: CEFTRIAXONE 1GM/50ML 50 ML IV ONE (00:15)
[2025-06-18 00:55] LABS: INR 1.1
[2025-06-18] MEDS: SODIUM CHLORIDE 0.9% (SEPSIS BOLUS) IV ONE (00:58)
[2025-06-18] MEDS: CEFTRIAXONE 1GM/50ML 50 ML IV NR (00:59)
[2025-06-18 01:00] LABS: ASPARTATE AMINOTRANSFERASE 72 IU/L (<34); BILIRUBIN DIRECT 0.3 mg/dL (<=3.0); BILIRUBIN TOTAL 0.5 mg/dL (0.1-1.0); PROTEIN TOTAL 6.2 g/dL (6.0-8.3)
[2025-06-18 08:00] VITALS: BP 92/50; PULSE 114; RESP 18; TEMP 36.1; O2SAT 96
[2025-06-18] MEDS ORDERED: ONDANSETRON HCL 4MG/2ML INJ IV PRN (10:15)
[2025-06-18] MEDS: SODIUM CHLORIDE 0.9% 1,000 ML IV SCH (11:35)
[2025-06-18 12:00] VITALS: BP 91/52; PULSE 116; RESP 18; TEMP 36.4; O2SAT 98
[2025-06-18 12:03] VITALS: BP 91/52; PULSE 116; RESP 18; TEMP 36.4736
[2025-06-18] MEDS: BLOOD SUGAR DIAGNOSTIC STRIP TEST SCH (12:20)
[2025-06-18] MEDS ORDERED: MEROPENEM 1,000 MG in SODIUM CHLORIDE 0.9% 100 ML IV SCH (12:45)
[2025-06-18 12:46] LABS: BG BASE EXCESS -6.6 mmol/L (-2.0-3.0); BG CARBOXYHEMOGLOBIN 0.8 % (0.5-1.5); BG DEOXYHEMOGLOBIN 4.6 % (0.0-5.0); BG FRACTION INSPIRED OXYGEN 21; BG HCO3 ACT 14.9 mmol/L (21.0-28.0); BG METHEMOGLOBIN 0.3 % (0.5-1.5); BG OXYGEN SATURATION 95.3 % (94.0-98.0); BG OXYHEMOGLOBIN 94.3 % (94.0-98.0); BG PCO2 21.7 mmHg (35.0-48.0); BG PH 7.456 (7.350-7.450); BG PO2 74.2 mmHg (83.0-108.0); BG SAMPLE SITE RIGHT BRACHIAL; BG TOTAL HEMOGLOBIN 14.4 g/dL (13.5-17.5); BG VENT MODE ROOM AIR
[2025-06-18] MEDS: INSULIN LISPRO 100 UNITS/ML SUBCUT SCH (12:50)
[2025-06-18] MEDS: MEROPENEM 1G/100ML IV SCH (14:29)
[2025-06-18] MEDS: LACTATED RINGERS 1,000 ML IV ONE (14:29)
[2025-06-18 16:00] VITALS: BP 102/48; PULSE 91; RESP 18; TEMP 36.3; O2SAT 98
[2025-06-18] MEDS: VANCOMYCIN 1.25GM/250ML IV SCH (16:20)
[2025-06-18 17:42] LABS: CLARITY URINE CLEAR (CLEAR); COLOR URINE DARK YELLOW (YELLOW); GLUCOSE URINE 3+ (NEGATIVE); KETONES URINE 1+ (NEGATIVE); LEUKOCYTE ESTERASE URINE NEGATIVE (NEGATIVE); NITRITE URINE NEGATIVE (NEGATIVE); OCCULT BLOOD URINE TRACE (NEGATIVE); PH URINE 5.0 (4.5-8.0); PROTEIN URINE 1+ (NEGATIVE); SPECIFIC GRAVITY URINE 1.025 (1.005-1.030); UROBILINOGEN URINE 1.0 E.U./dL (0.2-1.0)
[2025-06-18 17:50] LABS: WBC URINE 0-2 /hpf (0-2)
[2025-06-18 17:53] LABS: BACTERIA URINE RARE; SQUAMOUS EPITHELIAL CELL URINE NONE SEEN /lpf (RARE/1+)
[2025-06-18 20:00] VITALS: BP 104/38; PULSE 90; RESP 18; TEMP 36.3; O2SAT 95
[2025-06-18] MEDS: ATORVASTATIN CALCIUM 40MG TABLET PO SCH (21:06)
[2025-06-18] MEDS ORDERED: CEFTRIAXONE 1GM/50ML 50 ML IV SCH (23:00)
[2025-06-19] VITALS (22 sets, daily range): BP systolic 73–124; BP diastolic 45–83; PULSE 76–110; RESP 14–26; TEMP 36.1–37.3; O2SAT 96–100
[2025-06-19 03:48] LABS: HEPATITIS C AB NON REACTIVE (Neg) (Negative)
[2025-06-19 09:00] LABS: HEMATOCRIT. 30.4 % (42.0-52.0); HEMOGLOBIN. 9.5 g/dL (14.0-18.0); RED BLOOD CELL COUNT 3.12 mill/uL (4.7-6.1); RED CELL DISTRIBUTION WIDTH 15.8 % (11.6-14.6)
[2025-06-19 11:26] LABS: PLATELET 10 x1000/uL (130-400)
[2025-06-19 11:26] LABS: CREATININE 1.4 mg/dL (0.6-1.3); UREA NITROGEN BLOOD 49.0 mg/dL (9-23)
[2025-06-19 11:29] LABS: BAND% 17.0 % (1.0-6.0); LYMPHOCYTES % MANUAL 1.0 % (20.0-50.0); MONOCYTES % MANUAL 2.0 % (2.0-8.0); NEUTROPHILS % MANUAL 80.0 % (45.0-75.0); PLATELET ESTIMATE MARKEDLY DECREASED
[2025-06-19] MEDS: VANCOMYCIN 750MG/150ML (BAXTER) IV SCH (15:36)
[2025-06-19] MEDS: LACTATED RINGERS 500 ML IV ONE (15:37)
[2025-06-19 15:57] LABS: INR 1.1
[2025-06-19 16:08] LABS: FOLIC ACID (FOLATE) SERUM 6.08 ng/mL (>5.38)
[2025-06-19 16:09] LABS: VITAMIN B12 SERUM > 2000 pg/mL (211-911)
[2025-06-19 16:53] LABS: BG BASE EXCESS -6.2 mmol/L (-2.0-3.0); BG CARBOXYHEMOGLOBIN 1.2 % (0.5-1.5); BG DEOXYHEMOGLOBIN 1.5 % (0.0-5.0); BG FLOW(L/min) 15.00 L/min; BG FRACTION INSPIRED OXYGEN 100; BG HCO3 ACT 16.2 mmol/L (21.0-28.0); BG METHEMOGLOBIN 0.3 % (0.5-1.5); BG OXYGEN SATURATION 98.5 % (94.0-98.0); BG OXYHEMOGLOBIN 97.0 % (94.0-98.0); BG PCO2 25.0 mmHg (35.0-48.0); BG PH 7.430 (7.350-7.450); BG PO2 118.5 mmHg (83.0-108.0); BG SAMPLE SITE RIGHT RADIAL; BG TOTAL HEMOGLOBIN 14.0 g/dL (13.5-17.5); BG VENT MODE MASK - NRB
[2025-06-19] MEDS: LACTATED RINGERS 1,000 ML IV ONE (17:15)
[2025-06-19] MEDS: MIDODRINE HCL 5MG TABLET PO SCH (22:18)
[2025-06-20] VITALS (67 sets, daily range): BP systolic 72–152; BP diastolic 41–123; PULSE 63–124; RESP 11–30; TEMP 36.3918–37.44744; O2SAT 92–100
[2025-06-20 02:11] LABS: HEMATOCRIT. 40.8 % (42.0-52.0); HEMOGLOBIN. 13.1 g/dL (14.0-18.0); MEAN PLATELET VOLUME 8.9 fl (7.4-10.4); RED BLOOD CELL COUNT 4.29 mill/uL (4.7-6.1); RED CELL DISTRIBUTION WIDTH 16.3 % (11.6-14.6)
[2025-06-20 02:46] LABS: PLATELET 17 x1000/uL (130-400)
[2025-06-20 06:28] LABS: HEMATOCRIT. 42.0 % (42.0-52.0); HEMOGLOBIN. 13.3 g/dL (14.0-18.0); MEAN PLATELET VOLUME 10.0 fl (7.4-10.4); RED BLOOD CELL COUNT 4.44 mill/uL (4.7-6.1); RED CELL DISTRIBUTION WIDTH 15.7 % (11.6-14.6)
[2025-06-20 06:46] LABS: CREATININE 1.5 mg/dL (0.6-1.3); UREA NITROGEN BLOOD 58.0 mg/dL (9-23)
[2025-06-20 06:55] LABS: BG BASE EXCESS -4.8 mmol/L (-2.0-3.0); BG CARBOXYHEMOGLOBIN 0.5 % (0.5-1.5); BG DEOXYHEMOGLOBIN 0.0 % (0.0-5.0); BG FRACTION INSPIRED OXYGEN 100; BG HCO3 ACT 17.7 mmol/L (21.0-28.0); BG METHEMOGLOBIN 0.3 % (0.5-1.5); BG OXYGEN SATURATION 100.0 % (94.0-98.0); BG OXYHEMOGLOBIN 99.2 % (94.0-98.0); BG PCO2 26.6 mmHg (35.0-48.0); BG PH 7.441 (7.350-7.450); BG PO2 478.8 mmHg (83.0-108.0); BG SAMPLE SITE LEFT BRACHIAL; BG TOTAL HEMOGLOBIN 14.2 g/dL (13.5-17.5); BG TOTAL RESPIRATORY RATE 24 b/min; BG VENT MODE MASK - NRB
[2025-06-20 07:01] LABS: PLATELET 10 x1000/uL (130-400)
[2025-06-20] MEDS: IPRATROPIUM/ALBUTEROL 0.5-3(2.5)MG/3ML NEB HHN PRN (09:12)
[2025-06-20] MEDS: ACETAMINOPHEN 325MG TABLET PO PRN (10:57)
[2025-06-20] MEDS: IPRATROPIUM/ALBUTEROL 0.5-3(2.5)MG/3ML NEB HHN SCH (12:49)
[2025-06-20] MEDS: VANCOMYCIN 750MG/150ML (BAXTER) IV SCH (13:15)
[2025-06-20 17:19] LABS: BAND% 4.0 % (1.0-6.0); LYMPHOCYTES % MANUAL 1.0 % (20.0-50.0); NEUTROPHILS % MANUAL 95.0 % (45.0-75.0); PLATELET ESTIMATE MARKEDLY DECREASED
[2025-06-20 17:56] LABS: BAND% 1.0 % (1.0-6.0); LYMPHOCYTES % MANUAL 5.0 % (20.0-50.0); MONOCYTES % MANUAL 1.0 % (2.0-8.0); NEUTROPHILS % MANUAL 93.0 % (45.0-75.0); PLATELET ESTIMATE MARKEDLY DECREASED
[2025-06-20] MEDS: AZITHROMYCIN 500 MG TABLET PO SCH (18:34)
[2025-06-21] VITALS (24 sets, daily range): BP systolic 85–162; BP diastolic 58–75; PULSE 94–126; RESP 19–39; TEMP 36.28068–37.8; O2SAT 94–100
[2025-06-21 00:33] LABS: INR 1.1
[2025-06-21 07:11] LABS: LDL CHOLESTEROL 20 mg/dL (5-100); TRIGLYCERIDE 191 mg/dL (0-150); UREA NITROGEN BLOOD 63 mg/dL (9-23)
[2025-06-21 07:34] LABS: HEMATOCRIT. 37.6 % (42.0-52.0); HEMOGLOBIN. 12.1 g/dL (14.0-18.0); MEAN PLATELET VOLUME 9.8 fl (7.4-10.4); RED BLOOD CELL COUNT 3.99 mill/uL (4.7-6.1); RED CELL DISTRIBUTION WIDTH 16.4 % (11.6-14.6)
[2025-06-21 07:35] LABS: CREATININE 2.0 mg/dL (0.6-1.3)
[2025-06-21 08:51] LABS: PLATELET 35 x1000/uL (130-400)
[2025-06-21] MEDS: IPRATROPIUM BROMIDE (0.02%) 0.5MG/2.5ML NEB HHN SCH (11:33)
[2025-06-21] MEDS: ACETAMINOPHEN 1000MG/100ML 100 ML IV NR (15:23)
[2025-06-21 16:43] LABS: BAND% 1.0 % (1.0-6.0); LYMPHOCYTES % MANUAL 1.0 % (20.0-50.0); MONOCYTES % MANUAL 2.0 % (2.0-8.0); NEUTROPHILS % MANUAL 96.0 % (45.0-75.0); PLATELET ESTIMATE MARKEDLY DECREASED
[2025-06-21] MEDS: VANCOMYCIN 500MG/100ML IV SCH (18:32)
[2025-06-22] VITALS (21 sets, daily range): BP systolic 90–133; BP diastolic 53–78; PULSE 67–104; RESP 15–22; TEMP 36.2–37; O2SAT 90–100
[2025-06-22 06:05] LABS: UREA NITROGEN BLOOD 87.0 mg/dL (9-23)
[2025-06-22 06:25] LABS: BASOPHILS % 0.1 % (0.0-2.0); EOSINOPHILS % 0.3 % (0.0-5.0); HEMATOCRIT. 35.0 % (42.0-52.0); HEMOGLOBIN. 11.2 g/dL (14.0-18.0); LYMPHOCYTES % 7.2 % (20.0-50.0); MEAN PLATELET VOLUME 9.5 fl (7.4-10.4); MONOCYTES % 5.7 % (2.0-8.0); NEUTROPHILS % 86.7 % (40.0-76.0); RED BLOOD CELL COUNT 3.73 mill/uL (4.7-6.1); RED CELL DISTRIBUTION WIDTH 16.1 % (11.6-14.6)
[2025-06-22 06:29] LABS: CREATININE 2.8 mg/dL (0.6-1.3)
[2025-06-22 08:12] LABS: PLATELET 10 x1000/uL (130-400)
[2025-06-22 10:23] LABS: BG BASE EXCESS -8.0 mmol/L (-2.0-3.0); BG CARBOXYHEMOGLOBIN 1.1 % (0.5-1.5); BG DEOXYHEMOGLOBIN 3.8 % (0.0-5.0); BG FRACTION INSPIRED OXYGEN 21; BG HCO3 ACT 15.3 mmol/L (21.0-28.0); BG METHEMOGLOBIN 0.3 % (0.5-1.5); BG OXYGEN SATURATION 96.1 % (94.0-98.0); BG OXYHEMOGLOBIN 94.8 % (94.0-98.0); BG PCO2 25.6 mmHg (35.0-48.0); BG PH 7.395 (7.350-7.450); BG PO2 83.9 mmHg (83.0-108.0); BG SAMPLE SITE LEFT RADIAL; BG TOTAL HEMOGLOBIN 11.8 g/dL (13.5-17.5); BG VENT MODE ROOM AIR
[2025-06-22] MEDS: SODIUM CHLORIDE 0.9% 1,000 ML IV SCH (13:35)
[2025-06-22 14:18] LABS: CLARITY URINE TURBID (CLEAR); COLOR URINE ORANGE (YELLOW); GLUCOSE URINE NEGATIVE (NEGATIVE); KETONES URINE 2+ (NEGATIVE); LEUKOCYTE ESTERASE URINE 2+ (NEGATIVE); NITRITE URINE POSITIVE (NEGATIVE); OCCULT BLOOD URINE 1+ (NEGATIVE); PH URINE 6.0 (4.5-8.0); PROTEIN URINE 1+ (NEGATIVE); SPECIFIC GRAVITY URINE 1.084 (1.005-1.030); UROBILINOGEN URINE 1.0 E.U./dL (0.2-1.0)
[2025-06-22 14:47] LABS: BACTERIA URINE NONE SEEN; RBC URINE TNTC /hpf (0-2); SQUAMOUS EPITHELIAL CELL URINE 1+ /lpf (RARE/1+); YEAST URINE NONE SEEN
[2025-06-22 20:21] LABS: HEPATITIS A AB IGM NEGATIVE (Negative)
[2025-06-22 20:22] LABS: HEPATITIS B CORE AB IGM NEGATIVE (Negative)
[2025-06-22 20:23] LABS: HEPATITIS C AB NON REACTIVE (Neg) (Negative)
[2025-06-22] MEDS: VANCOMYCIN 750MG PREMIX 150 ML IV SCH (21:58)
[2025-06-23] VITALS (89 sets, daily range): BP systolic 73–141; BP diastolic 39–106; PULSE 61–132; RESP 17–33; TEMP 36.1–37.16964; O2SAT 94–100
[2025-06-23] MEDS: METOPROLOL TARTRATE 50MG TABLET PO NR (00:15)
[2025-06-23] MEDS: METRONIDAZOLE 500 MG PREMIX 100 ML IV SCH (00:40)
[2025-06-23] MEDS: CEFTRIAXONE 2GM/50ML 50 ML IV SCH ×2 (00:41→21:50)
[2025-06-23] MEDS: MIDODRINE HCL 5MG TABLET PO SCH ×3 (01:39→12:22)
[2025-06-23 02:57] LABS: BG BASE EXCESS -6.4 mmol/L (-2.0-3.0); BG CARBOXYHEMOGLOBIN 1.0 % (0.5-1.5); BG DEOXYHEMOGLOBIN 2.0 % (0.0-5.0); BG FLOW(L/min) 6.00 L/min; BG FRACTION INSPIRED OXYGEN 44; BG HCO3 ACT 17.1 mmol/L (21.0-28.0); BG METHEMOGLOBIN 0.0 % (0.5-1.5); BG OXYGEN SATURATION 98.0 % (94.0-98.0); BG OXYHEMOGLOBIN 97.0 % (94.0-98.0); BG PCO2 28.3 mmHg (35.0-48.0); BG PH 7.399 (7.350-7.450); BG PO2 107.3 mmHg (83.0-108.0); BG SAMPLE SITE RIGHT RADIAL; BG TOTAL HEMOGLOBIN 12.0 g/dL (13.5-17.5); BG VENT MODE MASK - SIMPLE
[2025-06-23] MEDS: SODIUM CHLORIDE 0.9% (SEPSIS BOLUS) IV NR (04:00)
[2025-06-23] MEDS ORDERED: AMIODARONE 360MG/200ML 200 ML IV SCH (04:00)
[2025-06-23] MEDS: AMIODARONE 150MG/100ML D5W 100 ML IV NR (04:30)
[2025-06-23] MEDS: AMIODARONE HCL 900 MG in DEXT 5% WATER 500 ML IV SCH (05:00)
[2025-06-23 05:47] LABS: CREATININE 3.6 mg/dL (0.6-1.3); INR 1.1
[2025-06-23 05:52] LABS: UREA NITROGEN BLOOD 104.0 mg/dL (9-23)
[2025-06-23] MEDS: PHENYLEPHRINE 50MG/250ML PMX 250 ML IV PRN (05:55)
[2025-06-23 06:50] LABS: HEMATOCRIT. 32.9 % (42.0-52.0); HEMOGLOBIN. 10.8 g/dL (14.0-18.0); MEAN PLATELET VOLUME 9.5 fl (7.4-10.4); RED BLOOD CELL COUNT 3.52 mill/uL (4.7-6.1); RED CELL DISTRIBUTION WIDTH 16.2 % (11.6-14.6)
[2025-06-23 06:55] LABS: PLATELET 15 x1000/uL (130-400)
[2025-06-23] MEDS: MULTIVITAMINS,THER W-MINERALS TABLET NG SCH (08:32)
[2025-06-23] MEDS ORDERED: MEROPENEM 500MG/50ML 50 ML IV SCH (09:00)
[2025-06-23] MEDS ORDERED: AMIODARONE HCL 150 MG in DEXT 5% WATER 100 ML IV ONE (15:30)
[2025-06-23] MEDS: DIGOXIN 500MCG/2ML AMP IV SCH (15:53)
[2025-06-23] MEDS: AMIODARONE 150MG/100ML PREMIX IV SCH (15:55)
[2025-06-23] MEDS: AMIODARONE HCL 900 MG in DEXT 5% WATER 482 ML IV SCH (17:08)
[2025-06-23 21:30] LABS: BAND% 1.0 % (1.0-6.0); LYMPHOCYTES % MANUAL 6.0 % (20.0-50.0); MONOCYTES % MANUAL 2.0 % (2.0-8.0); NEUTROPHILS % MANUAL 91.0 % (45.0-75.0); PLATELET ESTIMATE MARKEDLY DECREASED
[2025-06-24] VITALS (81 sets, daily range): BP systolic 87–135; BP diastolic 35–116; PULSE 18–90; RESP 10–59; TEMP 36.16956–37.1; O2SAT 97–100
[2025-06-24 06:21] LABS: HEMATOCRIT. 30.6 % (42.0-52.0); HEMOGLOBIN. 10.1 g/dL (14.0-18.0); MEAN PLATELET VOLUME 10.9 fl (7.4-10.4); RED BLOOD CELL COUNT 3.28 mill/uL (4.7-6.1); RED CELL DISTRIBUTION WIDTH 16.4 % (11.6-14.6)
[2025-06-24 06:30] LABS: PLATELET 24 x1000/uL (130-400)
[2025-06-24 06:40] LABS: CREATININE 4.0 mg/dL (0.6-1.3); UREA NITROGEN BLOOD 98.0 mg/dL (9-23)
[2025-06-24 08:10] LABS: ALPHA FETOPROTEIN TUMOR MARKER < 1.8 ng/mL (0.0-6.4); CARCINOEMBRYONIC AG - SEND OUT 2.8 ng/mL (0.0-4.7)
[2025-06-24] MEDS ORDERED: LIDOCAINE HCL 1% 10 MG/ML 10ML VIAL ONE (08:21)
[2025-06-24] MEDS: METHYLPREDNISOLONE SOD SUCC 125MG/2ML (ACT-O-VIAL) IV SCH (09:15)
[2025-06-24] MEDS: IPRATROPIUM/ALBUTEROL 0.5-3(2.5)MG/3ML NEB HHN SCH (12:00)
[2025-06-24 15:10] LABS: EOSINOPHILS % MANUAL 1.0 % (0.0-5.0); LYMPHOCYTES % MANUAL 3.0 % (20.0-50.0); MONOCYTES % MANUAL 2.0 % (2.0-8.0); NEUTROPHILS % MANUAL 94.0 % (45.0-75.0); PLATELET ESTIMATE MARKEDLY DECREASED
[2025-06-25] VITALS (26 sets, daily range): BP systolic 92–142; BP diastolic 40–88; PULSE 57–88; RESP 15–22; TEMP 36.2–36.89184; O2SAT 96–100
[2025-06-25 06:20] LABS: HEMATOCRIT. 35.1 % (42.0-52.0); HEMOGLOBIN. 11.2 g/dL (14.0-18.0); MEAN PLATELET VOLUME 10.4 fl (7.4-10.4); RED BLOOD CELL COUNT 3.71 mill/uL (4.7-6.1); RED CELL DISTRIBUTION WIDTH 16.4 % (11.6-14.6)
[2025-06-25 06:31] LABS: CREATININE 3.3 mg/dL (0.6-1.3)
[2025-06-25 06:32] LABS: UREA NITROGEN BLOOD 58.0 mg/dL (9-23)
[2025-06-25 06:49] LABS: PLATELET 18 x1000/uL (130-400)
[2025-06-25 10:09] LABS: BAND% 5.0 % (1.0-6.0); LYMPHOCYTES % MANUAL 2.0 % (20.0-50.0); MONOCYTES % MANUAL 1.0 % (2.0-8.0); NEUTROPHILS % MANUAL 92.0 % (45.0-75.0)
[2025-06-25 10:12] LABS: PLATELET ESTIMATE MARKEDLY DECREASED
[2025-06-25] MEDS: METHYLPREDNISOLONE SOD SUCC 125MG/2ML (ACT-O-VIAL) IV SCH (17:44)
[2025-06-25 22:43] LABS: INR 1.2
[2025-06-26] VITALS (25 sets, daily range): BP systolic 111–145; BP diastolic 39–76; PULSE 61–88; RESP 13–24; TEMP 35.94732–37.1; O2SAT 97–100
[2025-06-26] MEDS ORDERED: NON FORMULARY MED XX SCH (11:15)
[2025-06-26] MEDS: IRON SUCROSE COMPLEX 100 MG/5 ML ML IV SCH (12:20)
[2025-06-26 13:55] LABS: HEMATOCRIT. 31.1 % (42.0-52.0); HEMOGLOBIN. 10.4 g/dL (14.0-18.0); MEAN PLATELET VOLUME 10.5 fl (7.4-10.4); PLATELET 76 x1000/uL (130-400); RED BLOOD CELL COUNT 3.38 mill/uL (4.7-6.1); RED CELL DISTRIBUTION WIDTH 16.3 % (11.6-14.6)
[2025-06-26 14:11] LABS: INR 1.4
[2025-06-26 14:21] LABS: CREATININE 2.8 mg/dL (0.6-1.3); UREA NITROGEN BLOOD 62 mg/dL (9-23)
[2025-06-26 14:22] LABS: ASPARTATE AMINOTRANSFERASE 30 IU/L (<34)
[2025-06-26 14:23] LABS: BILIRUBIN DIRECT 0.4 mg/dL (<=3.0); BILIRUBIN TOTAL 0.7 mg/dL (0.1-1.0); PROTEIN TOTAL 4.7 g/dL (6.0-8.3)
[2025-06-26] MEDS ORDERED: GUAIFENESIN 200MG 200 MG TABLET PO PRN (20:45)
[2025-06-26] MEDS: METHYLPREDNISOLONE SOD SUCC 40MG/ML (ACT-O-VIAL) IV SCH (20:57)
[2025-06-26 20:58] LABS: LYMPHOCYTES % MANUAL 5.0 % (20.0-50.0); MONOCYTES % MANUAL 4.0 % (2.0-8.0); NEUTROPHILS % MANUAL 91.0 % (45.0-75.0); PLATELET ESTIMATE DECREASED
[2025-06-27] VITALS (24 sets, daily range): BP systolic 69–158; BP diastolic 29–141; PULSE 63–97; RESP 14–28; TEMP 36.3–36.7; O2SAT 90–100
[2025-06-27 05:58] LABS: HEMATOCRIT. 33.1 % (42.0-52.0); HEMOGLOBIN. 10.8 g/dL (14.0-18.0); MEAN PLATELET VOLUME 12.2 fl (7.4-10.4); RED BLOOD CELL COUNT 3.57 mill/uL (4.7-6.1); RED CELL DISTRIBUTION WIDTH 16.0 % (11.6-14.6)
[2025-06-27 06:18] LABS: CREATININE 3.2 mg/dL (0.6-1.3); UREA NITROGEN BLOOD 78 mg/dL (9-23)
[2025-06-27 06:20] LABS: ASPARTATE AMINOTRANSFERASE 34 IU/L (<34); BILIRUBIN DIRECT 0.4 mg/dL (<=3.0); BILIRUBIN TOTAL 0.7 mg/dL (0.1-1.0); PROTEIN TOTAL 4.8 g/dL (6.0-8.3)
[2025-06-27 06:28] LABS: PLATELET 33 x1000/uL (130-400)
[2025-06-27] MEDS: FOLIC ACID/VITAMIN B COMP W-C TABLET NG SCH (09:00)
[2025-06-27] MEDS: INSULIN GLARGINE 100 UNITS/ML SUBCUT SCH (11:02)
[2025-06-27 14:36] LABS: LYMPHOCYTES % MANUAL 4.0 % (20.0-50.0); MONOCYTES % MANUAL 2.0 % (2.0-8.0); NEUTROPHILS % MANUAL 94.0 % (45.0-75.0)
[2025-06-27 14:37] LABS: PLATELET ESTIMATE MARKEDLY DECREASED
[2025-06-28] VITALS (17 sets, daily range): BP systolic 83–131; BP diastolic 42–108; PULSE 51–78; RESP 12–25; TEMP 36.1–36.5; O2SAT 88–98
[2025-06-28 05:48] LABS: CREATININE 2.5 mg/dL (0.6-1.3)
[2025-06-28 05:49] LABS: UREA NITROGEN BLOOD 51.0 mg/dL (9-23)
[2025-06-28 06:35] LABS: HEMATOCRIT. 31.6 % (42.0-52.0); HEMOGLOBIN. 10.2 g/dL (14.0-18.0); MEAN PLATELET VOLUME 12.1 fl (7.4-10.4); RED BLOOD CELL COUNT 3.37 mill/uL (4.7-6.1); RED CELL DISTRIBUTION WIDTH 16.5 % (11.6-14.6)
[2025-06-28 06:52] LABS: PLATELET 30 x1000/uL (130-400)
[2025-06-28] MEDS: DEXTROSE 50% WATER 50ML SYRINGE IV PRN (09:01)
[2025-06-28 22:40] LABS: LYMPHOCYTES % MANUAL 3.0 % (20.0-50.0); MONOCYTES % MANUAL 3.0 % (2.0-8.0); NEUTROPHILS % MANUAL 94.0 % (45.0-75.0); PLATELET ESTIMATE DECREASED
[2025-06-29] VITALS (23 sets, daily range): BP systolic 94–124; BP diastolic 40–86; PULSE 63–102; RESP 14–20; TEMP 36.2–37.4; O2SAT 96–100
[2025-06-29 04:18] LABS: HEMATOCRIT. 32.3 % (42.0-52.0); HEMOGLOBIN. 10.7 g/dL (14.0-18.0); MEAN PLATELET VOLUME 9.7 fl (7.4-10.4); RED BLOOD CELL COUNT 3.51 mill/uL (4.7-6.1); RED CELL DISTRIBUTION WIDTH 16.4 % (11.6-14.6)
[2025-06-29 04:21] LABS: CREATININE 2.8 mg/dL (0.6-1.3); UREA NITROGEN BLOOD 66 mg/dL (9-23)
[2025-06-29 04:24] LABS: INR 1.3; PHOSPHORUS 6.2 mg/dL (2.5-4.9)
[2025-06-29 04:27] LABS: PLATELET 48 x1000/uL (130-400)
[2025-06-29 13:19] LABS: BAND% 2.0 % (1.0-6.0); LYMPHOCYTES % MANUAL 1.0 % (20.0-50.0); MONOCYTES % MANUAL 2.0 % (2.0-8.0); NEUTROPHILS % MANUAL 95.0 % (45.0-75.0); PLATELET ESTIMATE MARKEDLY DECREASED
[2025-06-29] MEDS: MAGNESIUM 1 G PREMIX 100 ML IV NR (18:34)
[2025-06-30] VITALS (22 sets, daily range): BP systolic 52–121; BP diastolic 35–97; PULSE 60–117; RESP 14–19; TEMP 35.89176–37.1; O2SAT 93–100
[2025-06-30 06:47] LABS: HEMATOCRIT. 32.7 % (42.0-52.0); HEMOGLOBIN. 10.6 g/dL (14.0-18.0); MEAN PLATELET VOLUME 12.6 fl (7.4-10.4); RED BLOOD CELL COUNT 3.46 mill/uL (4.7-6.1); RED CELL DISTRIBUTION WIDTH 16.6 % (11.6-14.6)
[2025-06-30 06:54] LABS: PLATELET 49 x1000/uL (130-400)
[2025-06-30 07:08] LABS: CREATININE 3.0 mg/dL (0.6-1.3); UREA NITROGEN BLOOD 65.0 mg/dL (9-23)
[2025-06-30] MEDS: MIDODRINE HCL 5MG TABLET PO PRN (21:19)
[2025-06-30] MEDS ORDERED: NOREPINEPHRINE 8MG/250ML PMX 250 ML IV PRN (23:45)
[2025-07-01] VITALS (90 sets, daily range): BP systolic 70–140; BP diastolic 36–126; PULSE 80–123; RESP 10–35; TEMP 36.3–37.1; O2SAT 9–100
[2025-07-01] MEDS: PHENYLEPHRINE 50MG/250ML PMX 250 ML IV PRN (00:50)
[2025-07-01 06:44] LABS: BAND% 1.0 % (1.0-6.0); LYMPHOCYTES % MANUAL 6.0 % (20.0-50.0); NEUTROPHILS % MANUAL 93.0 % (45.0-75.0)
[2025-07-01 06:49] LABS: PLATELET ESTIMATE MARKEDLY DECREASED
[2025-07-01 07:00] LABS: HEMATOCRIT. 34.5 % (42.0-52.0); HEMOGLOBIN. 10.9 g/dL (14.0-18.0); MEAN PLATELET VOLUME 11.9 fl (7.4-10.4); PLATELET 52 x1000/uL (130-400); RED BLOOD CELL COUNT 3.53 mill/uL (4.7-6.1); RED CELL DISTRIBUTION WIDTH 17.0 % (11.6-14.6)
[2025-07-01 07:22] LABS: CREATININE 2.5 mg/dL (0.6-1.3)
[2025-07-01 07:23] LABS: ASPARTATE AMINOTRANSFERASE 50 IU/L (<34); UREA NITROGEN BLOOD 40 mg/dL (9-23)
[2025-07-01 07:24] LABS: BILIRUBIN TOTAL 1.0 mg/dL (0.1-1.0)
[2025-07-01 07:25] LABS: PROTEIN TOTAL 4.3 g/dL (6.0-8.3)
[2025-07-01] MEDS: FERROUS SULFATE 325MG TABLET PO SCH (08:44)
[2025-07-01] MEDS: MIDODRINE HCL 5MG TABLET PO SCH (12:58)
[2025-07-01 16:00] LABS: LYMPHOCYTES % MANUAL 2.0 % (20.0-50.0); MONOCYTES % MANUAL 5.0 % (2.0-8.0); NEUTROPHILS % MANUAL 93.0 % (45.0-75.0); PLATELET ESTIMATE MARKEDLY DECREASED
[2025-07-02] VITALS (98 sets, daily range): BP systolic 78–164; BP diastolic 34–123; PULSE 59–128; RESP 11–33; TEMP 36.22512–36.8; O2SAT 90–100
[2025-07-02 06:26] LABS: HEMATOCRIT. 32.7 % (42.0-52.0); HEMOGLOBIN. 10.2 g/dL (14.0-18.0); MEAN PLATELET VOLUME 10.9 fl (7.4-10.4); PLATELET 72 x1000/uL (130-400); RED BLOOD CELL COUNT 3.35 mill/uL (4.7-6.1); RED CELL DISTRIBUTION WIDTH 17.2 % (11.6-14.6)
[2025-07-02 06:45] LABS: CREATININE 3.1 mg/dL (0.6-1.3); UREA NITROGEN BLOOD 50.0 mg/dL (9-23)
[2025-07-02 10:51] LABS: BAND% 2.0 % (1.0-6.0); LYMPHOCYTES % MANUAL 5.0 % (20.0-50.0); MONOCYTES % MANUAL 6.0 % (2.0-8.0); NEUTROPHILS % MANUAL 87.0 % (45.0-75.0); PLATELET ESTIMATE DECREASED
[2025-07-03] VITALS (72 sets, daily range): BP systolic 58–166; BP diastolic 44–128; PULSE 64–95; RESP 11–28; TEMP 36.22512–37.2; O2SAT 84–100
[2025-07-03 07:33] LABS: CREATININE 2.5 mg/dL (0.6-1.3)
[2025-07-03 07:34] LABS: UREA NITROGEN BLOOD 38.0 mg/dL (9-23)
[2025-07-03 07:36] LABS: PHOSPHORUS 6.3 mg/dL (2.5-4.9)
[2025-07-03 07:48] LABS: HEMATOCRIT. 29.2 % (42.0-52.0); HEMOGLOBIN. 9.5 g/dL (14.0-18.0); MEAN PLATELET VOLUME 10.5 fl (7.4-10.4); PLATELET 68 x1000/uL (130-400); RED BLOOD CELL COUNT 3.10 mill/uL (4.7-6.1); RED CELL DISTRIBUTION WIDTH 17.0 % (11.6-14.6)
[2025-07-04] VITALS (27 sets, daily range): BP systolic 81–173; BP diastolic 55–114; PULSE 76–105; RESP 12–23; TEMP 36.1–36.8; O2SAT 66–100
[2025-07-04 07:50] LABS: LYMPHOCYTES % MANUAL 6.0 % (20.0-50.0); MONOCYTES % MANUAL 3.0 % (2.0-8.0); NEUTROPHILS % MANUAL 91.0 % (45.0-75.0); PLATELET ESTIMATE DECREASED
[2025-07-05] VITALS (17 sets, daily range): BP systolic 124–179; BP diastolic 59–89; PULSE 70–90; RESP 12–21; TEMP 36.3–36.8; O2SAT 92–100
[2025-07-05 08:31] LABS: HEMATOCRIT. 28.3 % (42.0-52.0); HEMOGLOBIN. 9.2 g/dL (14.0-18.0); MEAN PLATELET VOLUME 10.2 fl (7.4-10.4); RED BLOOD CELL COUNT 2.94 mill/uL (4.7-6.1); RED CELL DISTRIBUTION WIDTH 17.8 % (11.6-14.6)
[2025-07-05 08:38] LABS: CREATININE 2.5 mg/dL (0.6-1.3); UREA NITROGEN BLOOD 38.0 mg/dL (9-23)
[2025-07-05 09:03] LABS: PLATELET 49 x1000/uL (130-400)
[2025-07-05 17:29] LABS: MONOCYTES % MANUAL 7.0 % (2.0-8.0); NEUTROPHILS % MANUAL 93.0 % (45.0-75.0); PLATELET ESTIMATE MARKEDLY DECREASED
[2025-07-05 17:30] LABS: LYMPHOCYTES % MANUAL 0.0 % (20.0-50.0)
[2025-07-06] VITALS (18 sets, daily range): BP systolic 83–170; BP diastolic 56–80; PULSE 80–110; RESP 13–26; TEMP 36.16956–36.9; O2SAT 95–100
[2025-07-06] MEDS: HYDRALAZINE 20MG/ML VIAL IV PRN (06:29)
[2025-07-07] VITALS (10 sets, daily range): BP systolic 127–168; BP diastolic 58–95; PULSE 82–94; RESP 12–23; TEMP 36.1–36.8; O2SAT 100
[2025-07-07 07:01] LABS: BASOPHILS % 0.4 % (0.0-2.0); CREATININE 2.3 mg/dL (0.6-1.3); EOSINOPHILS % 1.1 % (0.0-5.0); HEMATOCRIT. 32.9 % (42.0-52.0); HEMOGLOBIN. 10.1 g/dL (14.0-18.0); LYMPHOCYTES % 7.8 % (20.0-50.0); MEAN PLATELET VOLUME 10.8 fl (7.4-10.4); MONOCYTES % 6.4 % (2.0-8.0); NEUTROPHILS % 84.3 % (40.0-76.0); RED BLOOD CELL COUNT 3.19 mill/uL (4.7-6.1); RED CELL DISTRIBUTION WIDTH 19.9 % (11.6-14.6); UREA NITROGEN BLOOD 31.0 mg/dL (9-23)
[2025-07-07 10:34] LABS: PLATELET 39 x1000/uL (130-400)
[2025-07-08] VITALS (8 sets, daily range): BP systolic 132–167; BP diastolic 46–102; PULSE 82–99; RESP 10–21; TEMP 36.1–36.6; O2SAT 98–100
[2025-07-08] MEDS: HEPARIN 1000 UNITS/ML 10ML ONE (10:14)
[2025-07-08] MEDS: LIDOCAINE HCL 1% 10 MG/ML 10ML VIAL ONE (10:15)
[2025-07-08 11:44] LABS: BASOPHILS % 0.7 % (0.0-2.0); EOSINOPHILS % 2.7 % (0.0-5.0); HEMATOCRIT. 28.5 % (42.0-52.0); HEMOGLOBIN. 9.1 g/dL (14.0-18.0); LYMPHOCYTES % 7.6 % (20.0-50.0); MEAN PLATELET VOLUME 10.6 fl (7.4-10.4); MONOCYTES % 7.2 % (2.0-8.0); NEUTROPHILS % 81.8 % (40.0-76.0); RED BLOOD CELL COUNT 2.89 mill/uL (4.7-6.1); RED CELL DISTRIBUTION WIDTH 20.4 % (11.6-14.6)
[2025-07-08 11:56] LABS: PLATELET 45 x1000/uL (130-400)
[2025-07-08 12:04] LABS: CREATININE 2.2 mg/dL (0.6-1.3); UREA NITROGEN BLOOD 49.0 mg/dL (9-23)
[2025-07-09] VITALS: BP 124/61; PULSE 89; RESP 16; TEMP 36.3; O2SAT 100
[2025-07-09 04:00] VITALS: BP 152/64; PULSE 95; RESP 18; TEMP 36.3; O2SAT 97
[2025-07-09 08:00] VITALS: BP 150/82; PULSE 97; RESP 17; TEMP 36.2; O2SAT 100
[2025-07-09 08:20] LABS: BASOPHILS % 0.7 % (0.0-2.0); EOSINOPHILS % 2.1 % (0.0-5.0); HEMATOCRIT. 30.7 % (42.0-52.0); HEMOGLOBIN. 9.6 g/dL (14.0-18.0); LYMPHOCYTES % 9.4 % (20.0-50.0); MEAN PLATELET VOLUME 10.7 fl (7.4-10.4); MONOCYTES % 6.4 % (2.0-8.0); NEUTROPHILS % 81.4 % (40.0-76.0); RED BLOOD CELL COUNT 3.06 mill/uL (4.7-6.1); RED CELL DISTRIBUTION WIDTH 21.5 % (11.6-14.6)
[2025-07-09 08:35] LABS: CREATININE 2.0 mg/dL (0.6-1.3); UREA NITROGEN BLOOD 41.0 mg/dL (9-23)
[2025-07-09 09:06] LABS: PLATELET 48 x1000/uL (130-400)
[2025-07-09] MEDS: DEXTROSE 5% WATER 1,000 ML IV SCH (09:45)
[2025-07-09 12:00] VITALS: BP 152/83; PULSE 90; RESP 18; TEMP 36.3; O2SAT 100
[2025-07-09 16:00] VITALS: BP 199/67; PULSE 86; RESP 15; TEMP 36.4; O2SAT 97
[2025-07-09 20:00] VITALS: PULSE 93; RESP 19; TEMP 36.3; O2SAT 96
[2025-07-10] VITALS: BP 165/82; PULSE 93; RESP 18; TEMP 36.3; O2SAT 99
[2025-07-10] MEDS: CLONIDINE 0.1MG TABLET PO PRN (00:12)
[2025-07-10 04:00] VITALS: BP 164/81; PULSE 91; RESP 19; TEMP 36.3; O2SAT 97
[2025-07-10 08:00] VITALS: BP 90/45; PULSE 94; RESP 15; TEMP 36.7; O2SAT 96
[2025-07-10 12:00] VITALS: BP 104/55; PULSE 87; RESP 18; TEMP 36.2; O2SAT 98
[2025-07-10 13:20] LABS: CREATININE 1.6 mg/dL (0.6-1.3); UREA NITROGEN BLOOD 30.0 mg/dL (9-23)
[2025-07-10 16:00] VITALS: BP 141/68; PULSE 91; RESP 19; TEMP 36.6; O2SAT 99
[2025-07-10 20:00] VITALS: BP 127/76; PULSE 91; RESP 16; TEMP 36.4; O2SAT 98
[2025-07-11] VITALS: BP 168/82; PULSE 87; RESP 19; TEMP 36.3; O2SAT 98
[2025-07-11 04:00] VITALS: BP 161/78; PULSE 86; RESP 19; TEMP 36.2; O2SAT 98
[2025-07-11] MEDS ORDERED: HYDRALAZINE 20MG/ML VIAL IV PRN (06:00)
[2025-07-11] MEDS ORDERED: CLONIDINE 0.1MG TABLET PO PRN (06:00)
[2025-07-11] MEDS ORDERED: ACETAMINOPHEN 325MG TABLET PO PRN (06:00)
[2025-07-11] MEDS ORDERED: ONDANSETRON HCL 4MG/2ML INJ IV PRN (06:00)
[2025-07-11] MEDS ORDERED: MAGNESIUM 2 G PREMIX 50 ML IV ONE (06:00)
[2025-07-11 08:00] VITALS: BP 85/43; PULSE 92; RESP 19; TEMP 36.7; O2SAT 100
[2025-07-11 11:32] LABS: BASOPHILS % 0.6 % (0.0-2.0); EOSINOPHILS % 1.8 % (0.0-5.0); HEMATOCRIT. 30.6 % (42.0-52.0); HEMOGLOBIN. 9.8 g/dL (14.0-18.0); LYMPHOCYTES % 12.8 % (20.0-50.0); MEAN PLATELET VOLUME 10.8 fl (7.4-10.4); MONOCYTES % 7.3 % (2.0-8.0); NEUTROPHILS % 77.5 % (40.0-76.0); PLATELET 51 x1000/uL (130-400); RED BLOOD CELL COUNT 3.07 mill/uL (4.7-6.1); RED CELL DISTRIBUTION WIDTH 23.6 % (11.6-14.6)
[2025-07-11 11:50] LABS: CREATININE 1.6 mg/dL (0.6-1.3); UREA NITROGEN BLOOD 36.0 mg/dL (9-23)
[2025-07-11 12:00] VITALS: BP 129/71; PULSE 87; RESP 18; TEMP 36.5; O2SAT 98
[2025-07-11 16:00] VITALS: BP 140/67; PULSE 92; RESP 18; TEMP 36.6; O2SAT 97
[2025-07-11 20:00] VITALS: BP 145/67; PULSE 89; RESP 18; TEMP 36.3; O2SAT 98
[2025-07-12 04:00] VITALS: BP 139/47; PULSE 94; RESP 19; TEMP 36.3; O2SAT 98
[2025-07-12 08:00] VITALS: BP 145/61; PULSE 90; RESP 14; TEMP 36.7; O2SAT 95
[2025-07-12 12:00] VITALS: BP 114/58; PULSE 89; RESP 15; TEMP 36.8; O2SAT 95
[2025-07-12 16:00] VITALS: BP 153/69; PULSE 93; RESP 16; TEMP 36.4; O2SAT 95
[2025-07-12 20:00] VITALS: BP 124/88; PULSE 95; RESP 19; TEMP 36.3; O2SAT 100
[2025-07-13] VITALS: BP 106/52; PULSE 98; RESP 19; TEMP 36.3; O2SAT 96
[2025-07-13 04:00] VITALS: BP 110/71; PULSE 87; RESP 19; TEMP 36.1; O2SAT 96
[2025-07-13 08:00] VITALS: BP 143/70; PULSE 85; RESP 18; TEMP 36.1; O2SAT 97
[2025-07-13 08:28] LABS: CREATININE 1.4 mg/dL (0.6-1.3); UREA NITROGEN BLOOD 22.0 mg/dL (9-23)
[2025-07-13] MEDS ORDERED: LORAZEPAM 1MG TABLET PO PRN (11:15)
[2025-07-13 12:00] VITALS: BP 142/53; PULSE 85; RESP 18; TEMP 36.1; O2SAT 97
[2025-07-13 12:44] VITALS: BP 142/53; PULSE 85; RESP 18; TEMP 36.1; O2SAT 97
[2025-07-13 13:27] VITALS: BP 142/53; PULSE 85; RESP 18; TEMP 96.9
== END 2025-07-13 16:00 | disposition home health service (06) | DRG 720 ==
LOC: ER 20:41 → 6WST 06-18 00:11 → EDBEDREQ 06-18 00:14 → EDBEDREQTM 06-18 00:14 → EDBEDREQDT 06-18 00:14 → EDBEDREQSVC 06-18 00:14 → ENRESERV 06-18 07:28 → 5EST 06-19 17:26 → MICUSO 06-19 21:08 → 5EST 06-20 16:23 → MICUNO 06-23 05:15 → 5EST 06-24 18:05 → CVICU 07-01 02:50 → 5EST 07-03 17:27 → 6WST 07-08 18:35
PROVIDERS: ADMIT Internal Medicine; ATTEND Internal Medicine
PROC: 30233R1 Transfusion of Nonautologous Platelets into Peripheral Vein, Percutaneous Approach (ICD-10-PCS; 2025-06-19)
PROC: 5A1D70Z Performance of Urinary Filtration, Intermittent, Less than 6 Hours Per Day (ICD-10-PCS; principal; 2025-06-24)
PROC: 02H633Z Insertion of Infusion Device into Right Atrium, Percutaneous Approach (ICD-10-PCS; 2025-06-24)
PROC: B5181ZA Fluoroscopy of Superior Vena Cava using Low Osmolar Contrast, Guidance (ICD-10-PCS; 2025-06-24)
PROC: B548ZZA Ultrasonography of Superior Vena Cava, Guidance (ICD-10-PCS; 2025-06-24)
PROC: 5A1D70Z Performance of Urinary Filtration, Intermittent, Less than 6 Hours Per Day (ICD-10-PCS; 2025-06-25)
PROC: 5A1D70Z Performance of Urinary Filtration, Intermittent, Less than 6 Hours Per Day (ICD-10-PCS; 2025-06-27)
PROC: 5A1D70Z Performance of Urinary Filtration, Intermittent, Less than 6 Hours Per Day (ICD-10-PCS; 2025-06-30)
PROC: 0F9130Z Drainage of Right Lobe Liver with Drainage Device, Percutaneous Approach (ICD-10-PCS; 2025-06-30)
PROC: 5A1D70Z Performance of Urinary Filtration, Intermittent, Less than 6 Hours Per Day (ICD-10-PCS; 2025-07-02)
PROC: 5A1D70Z Performance of Urinary Filtration, Intermittent, Less than 6 Hours Per Day (ICD-10-PCS; 2025-07-03)
PROC: 5A1D70Z Performance of Urinary Filtration, Intermittent, Less than 6 Hours Per Day (ICD-10-PCS; 2025-07-04)
PROC: 5A1D70Z Performance of Urinary Filtration, Intermittent, Less than 6 Hours Per Day (ICD-10-PCS; 2025-07-06)
DX: A41.59 Other Gram-negative sepsis (principal); D65 Disseminated intravascular coagulation [defibrination syndrome]; R65.21 Severe sepsis with septic shock; N17.0 Acute kidney failure with tubular necrosis; J96.01 Acute respiratory failure with hypoxia; K75.0 Abscess of liver; G93.41 Metabolic encephalopathy; E87.20 Acidosis, unspecified; R13.10 Dysphagia, unspecified; J18.9 Pneumonia, unspecified organism; N39.0 Urinary tract infection, site not specified; B96.1 Klebsiella pneumoniae [K. pneumoniae] as the cause of diseases classified elsewhere; L89.90 Pressure ulcer of unspecified site, unspecified stage; I50.33 Acute on chronic diastolic (congestive) heart failure; D64.9 Anemia, unspecified; E11.22 Type 2 diabetes mellitus with diabetic chronic kidney disease; I13.0 Hypertensive heart and chronic kidney disease with heart failure and stage 1 through stage 4 chronic kidney disease, or unspecified chronic kidney disease; F03.90 Unspecified dementia, unspecified severity, without behavioral disturbance, psychotic disturbance, mood disturbance, and anxiety; N18.30 Chronic kidney disease, stage 3 unspecified; I21.A1 Myocardial infarction type 2; E83.51 Hypocalcemia; E11.65 Type 2 diabetes mellitus with hyperglycemia; K57.30 Diverticulosis of large intestine without perforation or abscess without bleeding; K80.20 Calculus of gallbladder without cholecystitis without obstruction; I48.0 Paroxysmal atrial fibrillation; I48.92 Unspecified atrial flutter; D49.0 Neoplasm of unspecified behavior of digestive system; R16.0 Hepatomegaly, not elsewhere classified; L89.156 Pressure-induced deep tissue damage of sacral region; J98.11 Atelectasis; N27.0 Small kidney, unilateral; R74.01 Elevation of levels of liver transaminase levels; E78.5 Hyperlipidemia, unspecified; N28.1 Cyst of kidney, acquired; D72.825 Bandemia; R23.3 Spontaneous ecchymoses; R62.7 Adult failure to thrive; Z95.1 Presence of aortocoronary bypass graft; Z86.73 Personal history of transient ischemic attack (TIA), and cerebral infarction without residual deficits; I25.2 Old myocardial infarction; Z93.1 Gastrostomy status; Z95.0 Presence of cardiac pacemaker; Z79.899 Other long term (current) drug therapy
CPT/HCPCS: 20611; 36415; 36556; 36600; 71045; 71250; 73562; 74176; 76700; 76770; 77001; 77012; 80048; 80053; 80061; 80076; 80202; 81003; 82105; 82140; 82375; 82378; 82550; 82607; 82728; 82746; 82805; 82962; 82977; 83036; 83540; 83550; 83605; 83735; 83880; 84100; 84134; 84145; 84153; 84443; 84484; 85014; 85018; 85025; 85044; 85049; 85384; 86705; 86706; 86709; 86850; 86900; 87070; 87077; 87106; 87186; 87340; 90935; 93005; 93306; 93970; 94003; 94070; 94640; 94664; 97162; 99291; A4606; A4615; A6449; C1729; C1752; C1760; C1769; J0282; J0360; J0696; J1160; J1644; J1815; J2003; J2185; J2371; J2919; J3373; J3475; J3490; J7030; J7060; J7070; J7120; P9034; J0131